=== PATIENT | female | born 1960 | race Two or more races ===

== ENCOUNTER 2017-02-09 16:28 | Emergency (ER) | payer OTHER ==
[2017-02-09 16:45] VITALS: BP 152/74
--- NOTE | 2017-02-09 20:32 | ED ---
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 States a angelica solano caught her finger and she sustained a laceration. Denies any FB besides some dirt. Patient has bleeding under control. Not on anticoagulants. No medical problems. Denies numbness/tingling. States it is only painful when moving fingers. Denies any other injuries. PMHx significant for Hep C and high cholesterol. - History of Current Complaint Chief Complaint: laceration Stated Complaint: HAND LAC Hx Obtained From: Patient Hx Last Menstrual Period: 3 yrs ago Mechanism of Injury: Sharp/Blunt Trauma - stick/thorns Onset/Duration: Sudden Onset Aggravating: Movement Alleviating: Compression Timing: Constant Onset Severity: Moderate Current Severity: Moderate Pain Intensity: 8 Pain Scale Used: 0-10 Numeric Associated Signs & Symptoms: Negative Related Hx: Dominant Hand (Right) - Allergy/Home Medications Allergies/Adverse Reactions: Allergies Allergy/AdvReac Type Severity Reaction Status Date / Time Morphine and Related Allergy Rash Verified 08/02/13 14:18 PMH/Surg Hx/FS Hx/Imm Hx Endocrine/Hematology History: Denies: Hx Anticoagulant Therapy, Hx Diabetes, Hx Thyroid Disease Cardiovascular History: Reports: Hx Hypercholesterolemia, Hx Hypertension Denies: Hx Pacemaker/ICD, Hx Peripheral Vascular Disease Musculoskeletal History: Denies: Hx Arthritis, Hx Osteoporosis Sensory History: Denies: Hx Cataracts, Hx Contacts or Glasses, Hx Glaucoma, Hx Hearing Aid Opthamlomology History: Denies: Hx Cataracts, Hx Contacts or Glasses, Hx Glaucoma Neurological History: Reports: Hx Headaches Denies: Hx Seizures, Hx Transient Ischemic Attacks (TIA) Psychiatric History: Denies: Hx Anxiety, Hx Depression, Hx Panic Disorder - Surgical History Surgery Procedure, Year, and Place: CSP- FUSION-2010; APPENDECTOMY; CYST-BREAST (Lt); TUBAL LIGATION - Immunization History Date of Tetanus Vaccine: 2015 Immunizations Up to Date: Yes Infectious Disease History: No Infectious Disease History: Reports: Hx Hepatitis - 12 yrs ago Denies: Traveled Outside the [place] in Last 30 Days - Family History Known Family History: Positive: Hypertension - Social History Alcohol Use: Daily Substance Use Type: Reports: Marijuana Substance Use Comment - Amount & Last Used: OCCASIONALLY Smoking Status (MU): Heavy Every Day Tobacco Smoker Type: Cigarettes Review of Systems Constitutional: Negative Cardiovascular: Negative Respiratory: Negative Positive: Other - laceration Neurological: Negative All Other Systems Reviewed And Are Negative: Yes Physical Exam Triage Information Reviewed: Yes Vital Signs On Initial Exam: Initial Vitals Temp Pulse Resp BP Pulse Ox 98.2 F 66 15 152/74 98 02/09/17 16:40 02/09/17 16:40 02/09/17 16:40 02/09/17 16:40 02/09/17 16:40 Vital Signs Reviewed: Yes Appearance: Positive: Well-Appearing, No Pain Distress, Well-Nourished Skin: Positive: Warm, Skin Color Reflects Adequate Perfusion, Dry, Other - 2.5cm laceration noted in between PIP of left 4/5th digits, linear, no active bleeding, ~.5cm width no tendon or neurovascular involvement. uncomplicated no FB. Negative: Cold, Numb, Cyanosis @, Pale Head/Face: Positive: Normal Head/Face Inspection Eyes: Positive: Conjunctiva Clear ENT: Positive: Hearing grossly normal Neck: Positive: Supple, Nontender Respiratory/Lung Sounds: Positive: Clear to Auscultation, Breath Sounds Present. Negative: Rales, Rhonchi, Wheezes Cardiovascular: Positive: Normal, RRR, Pulses are Symmetrical in both Upper and Lower Extremities - 2+ radial b/l. Negative: Murmur, Rub Bowel Sounds: Positive: Present Musculoskeletal: Positive: Normal, Strength/ROM Intact, Pain @ - at laceration left 4/5th digit, Other - no crepitus, step off or obvious deformity other than laceration. Negative: Limited @, Interruption @ Neurological: Positive: Normal, Sensory/Motor Intact - sensation intact, Alert, Oriented to Person Place, Time, CN Intact II-III, NV Bundle Intact Distally, Normal Gait Psychiatric: Positive: Affect/Mood Appropriate Procedures - Laceration/Wound Repair 1 Location: Other - left hand in between 4/5th digit Description: Linear Anesthesia: Local, 1.0%, Lido Length, Depth and Shape: 2.5cm length, .5cm width, superficial epidermal Betadine Prep?: Yes Irrigated w/ Saline (ccs): 200 Laceration/Wound Explored: clean, no foreign body removed Closure: Single Layer Suture Type: Prolene - 4-0 Number of Sutures: 3 Sterile Dressing Applied?: Yes Diagnostics - Vital Signs Vital Signs Temp Pulse Resp BP Pulse Ox 02/09/17 18:52 97.1 F 66 18 152/74 97 02/09/17 16:40 98.2 F 66 15 152/74 98 - Laboratory Lab Statement: Any lab studies that have been ordered have been reviewed, and results considered in the medical decision making process. Laceration Repair Course/Dx - Course Course Of Treatment: due to mechanism of injury no need for x-ray at this time. laceration was sutured without complication. patient tolerated procedure well. well approximated and closed nicely. no tendon or neurovacular involvement. tetanus is already up to date. keep clean and dry. watch for signs of infection. aware of worsening signs and symptoms. follow up pcp. - Differential Dx Differental Diagnoses: Abrasion, Avulsion, Laceration - Clinical Impression Provider Diagnoses: Laceration of left hand Discharge - Discharge Plan Condition: Stable Disposition: HOME Patient Education Materials: Care For Your Stitches (ED), Laceration (ED) Referrals: Vu Butts MD [Primary Care Provider] - Additional Instructions: Keep dressing applied for 48 hours. Do not get wet. You may remove dressing after 48 hours if desired. Ibuprofen for pain and inflammation. Apply triple antibiotic and gently clean, do not scrub laceration. Have sutures removed in 7-10 days. Follow up with PCP. If you develop worsening signs or symptoms of infection please seek medical attention.
== END 2017-02-09 20:25 | disposition home or self-care (01) ==
LOC: ED 16:28
DX: S61.412A Laceration without foreign body of left hand, initial encounter (principal); W26.9XXA Contact with unspecified sharp object(s), initial encounter; Y93.89 Activity, other specified; Y92.9 Unspecified place or not applicable; F17.210 Nicotine dependence, cigarettes, uncomplicated
CPT/HCPCS: 12002; 99281

== ENCOUNTER 2017-12-01 09:40 | Emergency (ER) | payer OTHER ==
[2017-12-01 09:56] VITALS: BP 130/114
--- NOTE | 2017-12-01 11:02 | UC ---
Knee Pain HPI - HPI Summary HPI Summary: 57 yo WF c/o right knee joint/peripatellar complaint x 1.5 weeks. Has had left knee pain in 2013 and has had Doxycycline PO in November and December on the right knee of 2013 as a result of dx of lyme disease at that time. Now c/o similar pain on right knee, works at the [employer] - History of Current Complaint Chief Complaint: UCGeneralIllness Stated Complaint: KNEE PAIN Time Seen by Provider: 12/01/17 09:55 Hx Obtained From: Patient Hx Last Menstrual Period: 3 yrs ago Onset/Duration: Sudden Onset Severity Currently: Moderate Pain Intensity: 6 Character: Dull, Aching Aggravating Factor(s): Movement Alleviating Factor(s): Rest Associated Signs And Symptoms: Positive: Negative Able to Bear Weight: Yes - Allergies/Home Medications Allergies/Adverse Reactions: Allergies Allergy/AdvReac Type Severity Reaction Status Date / Time morphine Allergy Intermediate Rash Verified 12/01/17 09:43 Home Medications: Home Medications Sertraline* [Zoloft*] 1 tab PO DAILY 12/01/17 [History Confirmed 12/01/17] PMH/Surg Hx/FS Hx/Imm Hx Previously Healthy: Yes Other History Of: Negative For: Anticoagulant Therapy - Surgical History Surgical History: Yes Surgery Procedure, Year, and Place: CSP- FUSION-2010; APPENDECTOMY; CYST-BREAST (Lt); TUBAL LIGATION - Family History Known Family History: Positive: Hypertension - Social History Alcohol Use: Weekly Alcohol Amount: 2x/week Substance Use Type: Marijuana Substance Use Comment - Amount & Last Used: OCCASIONALLY Smoking Status (MU): Heavy Every Day Tobacco Smoker Type: Cigarettes Household Exposure Type: Cigarettes - Immunization History Most Recent Tetanus Shot: UTD Review of Systems Constitutional: Negative Skin: Negative Eyes: Negative ENT: Negative Respiratory: Negative Cardiovascular: Negative Gastrointestinal: Negative Genitourinary: Negative Motor: Negative Neurovascular: Negative Musculoskeletal: Other: - right knee pain Neurological: Negative Psychological: Negative All Other Systems Reviewed And Are Negative: Yes Physical Exam Triage Information Reviewed: Yes Appearance: Well-Appearing Vital Signs: Initial Vital Signs Temp 37.1 C 12/01/17 09:48 Pulse 65 12/01/17 09:48 Resp 18 12/01/17 09:48 BP 130/114 12/01/17 09:48 Pulse Ox 97 12/01/17 09:48 Vital Signs Reviewed: Yes Eye Exam: Normal ENT Exam: Normal Dental Exam: Normal Neck exam: Normal Neck: Positive: 1 Respiratory Exam: Normal Cardiovascular Exam: Normal Abdominal Exam: Normal Musculoskeletal: Positive: Other: - right peripatellar tenderness, neg joint line tenderness, NVI no weakness Neurological Exam: Normal Psychological Exam: Normal Skin Exam: Normal Knee Pain Course/Dx - Course Course Of Treatment: XR of right knee- effusion , OA. lyme titer, KRISH wrap, work note - Differential Dx/Diagnosis Differential Diagnosis/HQI/PQRI: Internal Derangement Of Knee, Sprain, Strain, Tendonitis Provider Diagnoses: right knee pain Discharge - Sign-Out/Discharge Documenting (check all that apply): Discharge/Admit/Transfer - Discharge Plan Condition: Stable Disposition: HOME Patient Education Materials: Knee Pain (ED) Forms: *Work Release Referrals: Vu Butts MD [Primary Care Provider] - - Billing Disposition and Condition Condition: STABLE Disposition: HOME
--- NOTE | 2017-12-01 11:19 | RAD ---
HISTORY: Right knee pain COMPARISONS: None VIEWS: 4, Frontal, lateral, axial, and oblique views of the right knee FINDINGS: BONE DENSITY: Normal. BONES: There is no displaced fracture. JOINTS: There is mild medial compartment and patellofemoral osteoarthritis. There is a large suprapatellar joint effusion. There is no lipohemarthrosis. ALIGNMENT: There is no dislocation. SOFT TISSUES: Unremarkable. OTHER FINDINGS: None. IMPRESSION: 1. JOINT EFFUSION. 2. MILD OSTEOARTHRITIS. 3. NO ACUTE OSSEOUS INJURY. IF SYMPTOMS PERSIST, RECOMMEND REPEAT IMAGING.
--- NOTE | 2017-12-03 07:32 | UC ---
- Progress Note Progress Note: please notify pt of results I suspect this is due to her prior history of Lyme Disease and not an acute infection I suggest she see INFECTIOUS DISEASE SPECIALIST Please give her Dr. Kitchen contact info Discharge - Sign-Out/Discharge Documenting (check all that apply): Discharge/Admit/Transfer, Post-Discharge Follow Up - Discharge Plan Condition: Stable Disposition: HOME Prescriptions: Naproxen [Naproxen 500 mg tab] 500 mg PO BID 10 Days #20 tablet Patient Education Materials: Knee Pain (ED) Forms: *Work Release Referrals: Vu Butts MD [Primary Care Provider] - - Billing Disposition and Condition Condition: STABLE Disposition: HOME
== END 2017-12-01 11:36 | disposition home or self-care (01) ==
LOC: UCEAST 09:40
DX: M25.561 Pain in right knee (principal); F17.210 Nicotine dependence, cigarettes, uncomplicated; Z88.5 Allergy status to narcotic agent
CPT/HCPCS: 86617; 87476; 87798; 99212; G0463

== ENCOUNTER 2018-03-23 09:00 | Inpatient (IN) | payer OTHER ==
--- NOTE | 2018-03-19 12:48 | HP ---
HISTORY AND PHYSICAL: DATE OF ADMISSION/SURGERY: 03/23/18 DATE OF OFFICE VISIT: 03/17/18 SURGEON: Joslyn Burnett MD * (DICTATED BY TU MENON) PROCEDURE: Right total knee arthroplasty. CHIEF COMPLAINT: Right knee pain. HISTORY OF PRESENT ILLNESS: Ms. Astudillo is a 57-year-old female with end-stage osteoarthritis of the right knee. She has failed conservative treatment and elected to proceed with a right total knee arthroplasty. PAST MEDICAL HISTORY: Hepatitis C, high cholesterol. PAST SURGICAL HISTORY: Appendectomy, septoplasty, cyst excision from the left breast, tubal ligation, and anterior cervical discectomy. CURRENT MEDICATIONS: 1. Sertraline 50 mg daily. 2. Simvastatin 40 mg q.h.s. ALLERGIES: MORPHINE causing a rash. FAMILY HISTORY: Heart disease, diabetes, and breast cancer. SOCIAL HISTORY: She is a 57-year-old female. She lives alone. She smokes approximately 15 to 18 cigarettes a day as well as occasional marijuana and uses occasional alcohol. REVIEW OF SYSTEMS: A complete 14-point review of systems was reviewed with the patient. It was positive for hepatitis C this past year and a history of a DVT while she was . She denies a history of PE, HIV, or anesthesia problems. PHYSICAL EXAMINATION GENERAL: She is well developed, well nourished, in no acute distress. VITAL SIGNS: She stands 66 inches tall, weighs 163 pounds. Her blood pressure 126/76 and a heart rate 72. HEENT: Normocephalic, atraumatic. NECK: Supple. No palpable lymph nodes. PULMONARY: The lungs are clear to auscultation bilaterally. CARDIO: Regular rate and rhythm. Strong S1, S2. ABDOMEN: Soft, nontender, nondistended. MUSCULOSKELETAL: Right lower extremity: The skin is intact. There are no open wounds or abrasions. She has a moderate joint effusion. Her range of motion is 15 to 120 degrees of flexion with patellofemoral crepitus and there is a 14-degree valgus deformity. She has a 2+ dorsalis pedis pulse, intact sensation. Her lower extremity muscle group strengths are intact at 5/5. NEUROLOGICAL: She is alert and oriented x3. ASSESSMENT AND PLAN: Ms. Astudillo is a 57-year-old female with end-stage osteoarthritis of the right knee. She has failed conservative treatment and elected to proceed with a right total knee arthroplasty, which is scheduled for 03/23/[address] Burnett discussed the risks and benefits of the surgery at today's visit and all of her questions were answered. She will follow up with Dr. Burnett 2 weeks after the surgery. TU MENON [id number]/[facility] #: [id number] [facility]PITALVeronica
[~2018-03-23 09:00] MED LIST: Acetaminophen TAB* 325 MG PO ONE; Buffered Lidocaine 0.9% SYRIN* 5 ML/SYR SYRINGE INTRADERM ONE; Famotidine IV* 10 MG/ML 2 ML (20 mg) IV ONE; Gabapentin CAP(*) 300 MG PO ONE; Tranexamic Acid 1,000 MG in NS 0.9% 50 ML* (outpatient use) IV SCH; celeCOXIB CAP* 200 MG PO ONE
--- OUTSIDE RECORDS SUMMARY | 2018-03-23 11:32 | XMS REPORT ---
:1960 External Reference #:[id number] Author Organization [employer] Address [address] [place] [address] [place] [address] Phone [phone] Care Team Providers Name Role Phone Vu Butts M.D. Primary Care Physician Unavailable Payers Type Date Identification Numbers Payment Provider Subscriber Commercial Effective: Policy Number: [id number] [place] Beth Astudillo 2008 Medicaid PayID: [id number] [place] [id number] Problems Date Description Provider Status Onset: 02/06/2018 Sprain of shoulder and upper arm Joslyn Burnett M.D. Active Onset: 02/06/2018 Acquired genu valgum Joslyn Burnett M.D. Active Onset: 02/06/2018 Localized, primary osteoarthritis Joslyn Burnett M.D. Active Onset: 02/06/2018 Calcific tendinitis of shoulder Joslyn Burnett M.D. Active Family History Date Family Member(s) Problem(s) Comments General Cancer General Diabetes General Heart Disease General Stroke General Rheumatoid Arthritis Social History Type Date Description Comments Lives With Alone Occupation Home [facility] Smokeless Tobacco Never Used Smokeless Tobacco ETOH Use Occasionally consumes alcohol Smoking Heavy tobacco smoker (more than 10 cigarettes/day) Exercise Type/Frequency Exercises regularly Allergies, Adverse Reactions, Alerts Date Description Reaction Status Severity Comments 11/28/2013 Morphine active Medications Medication Date Status Form Strength Qnty SIG Indications Ordering Provider Sertraline HCL 00/ Active Tablets 50mg 90tabs 1 by mouth Unknown 0000 every day Simvastatin 0000/ Active Tablets 40mg 90tabs 1 by mouth Unknown 0000 every night at bedtime Doxycycline 12/16/ Hx Capsules 100mg 60caps 1 by mouth Z86.19 Terry D. Monohydrate 2018 - twice a day [place], 02/01/ with food M.D. 2017 Doxycycline 12/15/ Hx Capsules 100mg 60caps 1 cap by Z86.19 Terry Mendez Hyclate 2017 - mouth twice [place], 12/16/ a day with M.DCindy 2018 food Naproxen 12/12/ Hx Tablets 500mg 40tabs 1 tablet Joslyn 2013 - with food Lex, 12/14/ by mouth M.DCindy 2017 twice a day Augmentin 09/06/ Hx Tablets 875-125mg 8tabs 1 po bid Dirk 2011 - Thu, 11/27/ M.DCindy 2013 Neurontin 09/08/ Hx Capsules 300mg 90caps 1 po tid Fam Moon 2010 - Fili, 11/27/ M.DCindy 2013 Oxycodone HCL 08/28/ Hx Tablets 5mg 90tabs 1-2 po q 4 Percy Saravia 2010 - hrs prn Erik, 11/27/ pain M.DCindy 2013 Neurontin 07/14/ Hx Capsules 100mg 90caps 1 po qhs to Fam Moon 2010 - start x 2 Fili, 09/08/ days then Redd 2010 up as tolerable slowly to 3 qhs then up as tolerable to 3 tid 2 days between each change Doxycycline / Hx Capsules 100mg 14caps twice a day Unknown Hyclate 0000 - by mouth 2017 Hydrocodone-Ac / Hx Tablets 5-325mg 40tabs 1 by mouth Unknown etaminophen 0000 - every 4-6 08/07/ hours prn. 2014 Medications Administered in Office Medication Date Status Form Strength Qnty SIG Indications Ordering Provider Depomedrol Administered Injection Joslyn 40MG 018 Redd Burnett Depomedrol Administered Injection Joslyn 80MG 014 Redd Burnett Depomedrol Administered Injection Joslyn 80MG 014 Redd Burnett Depomedrol Administered Injection Joslyn 80MG 014 Redd Burnett Vital Signs Date Vital Result Comment 03/17/2018 Height 66 inches 5'6" Weight 163.00 lb BP Systolic 126 mmHg BP Diastolic 76 mmHg Respiratory Rate 15 /min Pain Level 6 BMI (Body Mass Index) 26.3 kg/m2 02/06/2018 Height 66 inches 5'6" Weight 164.00 lb Heart Rate 84 /min BP Systolic 142 mmHg BP Diastolic 86 mmHg BMI (Body Mass Index) 26.5 kg/m2 02/02/2018 Height 66 inches 5'6" Weight 162.12 lb Heart Rate 72 /min BP Systolic Sitting 146 mmHg BP Diastolic Sitting 72 mmHg Respiratory Rate 14 /min Body Temperature 97.2 F BMI (Body Mass Index) 26.2 kg/m2 01/12/2018 Height 66 inches 5'6" Weight 163.00 lb Heart Rate 72 /min BP Systolic Sitting 146 mmHg BP Diastolic Sitting 62 mmHg Respiratory Rate 14 /min Body Temperature 98.8 F BMI (Body Mass Index) 26.3 kg/m2 12/15/2017 Height 66 inches 5'6" Weight 162.50 lb Heart Rate 72 /min BP Systolic Sitting 154 mmHg BP Diastolic Sitting 90 mmHg Respiratory Rate 14 /min Body Temperature 99.0 F BMI (Body Mass Index) 26.2 kg/m2 02/15/2014 Height 66 inches 5'6" Heart Rate 69 /min BP Systolic 148 mmHg BP Diastolic 84 mmHg 12/12/2013 Height 66 inches 5'6" Heart Rate 74 /min BP Systolic 141 mmHg BP Diastolic 96 mmHg 11/28/2013 Height 66 inches 5'6" Weight 170.00 lb Heart Rate 66 /min BMI (Body Mass Index) 27.4 kg/m2 Results Test Date Test Result H/L Range Note Surgical Pathology 08/06/2010 Surgical Pathology 1 <SEE NOTE> CBC With Electronic 07/31/2010 White Blood Count 5.7 CUMM 4.8-10.8 2 Diff Red Cell Count 4.69 CUMM 4.2-5.4 2 Hemoglobin 15.7 g/dL 12.0-16.0 2 Hematocrit 45 % 35-47 2 Mean Corpuscular Volume 95 um3 79-97 2 Mean Corpuscular Hemoglob 33 pg High 27-31 2 Mean Corpuscular HGB Cone 35 g/dL 32-36 2 Redcell Distribution WDTH 13 % 10.5-15 2 Platelet Count 196 CUMM 150-450 2 Mean Platelet Volume 7.7 um3 7.4-10.4 2 Gran % 44.8 % 38-83 2 Lymph % 40.1 % 25-47 2 Mononuclear % 8.7 % 1-9 2 Eosinophil % 5.8 % 0-6 2 Basophil % 0.6 % 0-2 2 Abs Lymphs 2.3 1.0-4.8 2 Abs Mononuclear 0.5 0-0.8 2 Absolute Neutrophil Count 2.6 1.5-7.7 2 Abs Eosinophils 0.3 0-0.6 2 Abs Basophils 0 0-0.2 2 Basic Metabolic Panel 07/31/2010 Sodium 139 mmol/L 135-145 2 Potassium 4.1 mmol/L 3.5-5.0 2 Chloride 105 mmol/L 101-111 2 Co2 (Carbon Dioxide) 28.0 mmol/L 22-32 2 Anion Gap 6.0 mmol/L 2-11 2, 3 Glucose 98 mg/dL 70-100 2 BUN 16 mg/dL 6-24 2 Creatinine 0.80 mg/dL 0.50-1.40 2 One Over Creatinine 1.20 2 BUN/Creatinine Ratio 20.0 8-20 2 Calcium 9.4 mg/dL 8.1-9.9 2 eGFR Non- 80.4 > 60 2 eGFR 97.3 > 60 2, 4 Type And Screen (Pre-Adm) 07/31/2010 Patient Blood Type B POSITIVE 2 Antibody Screen NEGATIVE 2 Specimen Discard Date 08/14/10 2, 5 1 --- RUN DATE: 08/07/10 [facility] NMI LIVE PAGE 1 RUN TIME: 1442 Specimen Inquiry RUN USER: INTERFACE -- Name: BETH ASTUDILLO Status: DIS IN Re08/06/10 Age/Sex: 50/F Unit#: [id number] Location: [facility]. : 58 -- Specimen: [id number] SOUT Spec Date: 08/06/[address]: Fam mckeon MD Spec Type: SURGICAL P Received: 08/06/10-8347 Copies to: SPECIMEN C5, 6, 7 DISC MATERIAL HISTORY PRE-OP DIAGNOSIS: Spinal cord compression and stenosis C5-C6, C6-C7 GROSS DESCRIPTION The specimen is received in formalin labelled Beth AnaCindy Astudillo, C5, C6, C7 Disc Material, and consists of multiple fragments of pink fibrous tissue measuring in aggregate 2.5 x 2.5 x 1.5 cm. Smash Hand section, one cassette. DIAGNOSIS Disc, C5-7, discectomy: Fibrohyaline cartilage with marked regenerative changes. Signed Electronically by: MAYTE MAI 08/07/10 1442 -- -- DEPARTMENT OF PATHOLOGY, [address] [place] [address] [facility] Permit #[id number] Rolando Hernandez M.D. Director Mayte Mai M.D. Stereo Plotter Operator Dir meeta -- 2 AA 08/06/10 3 Anion gap measurement may be of limited value in the presence of any alkalosis, especially in a combined acid base disorder. . 4 Because ethnic data is not always readily available, this report includes an eGFR for both -Americans and non- Americans. The National Kidney Disease Education Program (NKDEP) does not endorse the use of the MDRD equation for patients that are not between the ages of 18 and 70, are , have extremes of body size, muscle mass, or nutritional status, or are non- or non-. According to the National Kidney Foundation, irrespective of diagnosis, the stage of the disease is based on the level of kidney function: Stage Description GFR(mL/min/1.73 m(2)) 1 Kidney damage with normal or decreased GFR 90 2 Kidney damage with mild decrease in GFR 60-89 3 Moderate decrease in GFR 30-59 4 Severe decrease in GFR 15-29 5 Kidney failure <15 (or dialysis) 5 PREADMISSION TESTING SAMPLES FOR BLOOD BANK WILL BE HELD FOR 14 DAYS FROM THE DATE OF COLLECTION *IF* THE FOLLOWING CRITERIA ARE MET: 1) THE PATIENT HAS *NOT* BEEN IN THE LAST 3 MONTHS. 2) THE PATIENT HAS *NOT* BEEN TRANSFUSED IN THE LAST 3 MONTHS. PREADMISSION TESTING SAMPLES WILL *NOT* BE HELD FOR 14 DAYS FROM PATIENTS WHO IN THE LAST 3 MONTHS: 1) HAVE BEEN 2) HAVE BEEN TRANSFUSED THESE PATIENTS *MUST* BE COLLECTED WITHIN 3 DAYS OF THE SURGERY DATE. Procedures Date CPT Code Description Status 02/06/2018 Inject/Drain Joint/Bursa Major W/O US Completed 03/23/2017 57600 Destruction Of Benign Lesions Any Method 1-14 lesions Completed 03/23/2017 10098 Removal Skin Tags Up To 15 Completed 02/15/2014 Inject/Drain Joint/Bursa Major W/O US Completed 12/12/2013 Inject/Drain Joint/Bursa Major W/O US Completed 11/28/2013 54843 Xray Knee 3 Views Completed 11/28/2013 96617 Xray Knee 3 Views Completed 11/28/2013 Inject/Drain Joint/Bursa Major W/O US Completed 09/06/2011 54266 Rad Exam; Fingers Completed 09/06/2011 84823 FX Distal Finger/Thumb Care Completed 08/06/2010 07311 Anterior Instrumentation 2-3 Vertebral Segments Completed 08/06/2010 03629 additional level cervical below C2 Completed 08/06/2010 22936 arthrodesis,anterior interbody incl disc space Completed prep,discectomy,de 08/06/201081768 Allograft For Spine Surgery,Structural ([facility]) Completed Encounters Type Date Location Provider CPT E/M Dx Office Visit 02/06/2018 [facility] Joslyn Burnett M.D. 61262 M25.512 8:45a Of [facility] M25.561 M25.461 M75.32 S46.012A M21.061 M17.11 M19.012 Office Visit 02/02/2018 2:40p Sandor Mendez 25605 S83.206D Infectious Kennedy Guadarrama M.D. M25.512 S83.281D Office Visit 01/12/2018 2:20p Sandor Mendez 14245 M25.561 Chelsea Guadarrama M.D. M25.461 Office Visit 12/15/2017 4:20p Sandor Guadarrama, 81266 Z86.19 Chelsea Benavides M.D. A69.23 M25.561 M25.461 R76.8 Office Visit 03/23/2017 2:10p [facility] [place] [address] L56.8 D22.71 L82.0 Z78.9 R23.8 L53.8 L29.8 R20.8 L91.8 Office Visit 11/28/2013 1:00p [facility] Joslyn Burnett M.D. 91659 715.96 [facility] 088.81 844.1 139.8 Office Visit 01/17/2013 2:00p [facility] 25848 721.1 Of Door Fitter M.DiCndy Office Visit 02/12/2011 10:00a [facility] 75309 721.1 Of Braulio M.Vanessa Office Visit 07/24/2010 1:40p [facility] 03256 723.4 Of Braulio M.Vanessa Office Visit 07/14/2010 11:00a [facility], 87876 723.1 Of Braulio M.Vanessa Plan of Care Future Appointment(s):04/07/2018 10:15 am - Joslyn Burnett M.[facility]. at [facility]03/23/2018 3:30 pm - Justino Menendez PA-C at [facility]03/23/2018 3:30 pm - TU Garcia at [facility]03/23/2018 3:30 pm - Joslyn Burnett M.D. at [facility]03/17/2018 - Joslyn Burnett M.D.M17.11 Unilateral primary osteoarthritis, right kneeFollow up:Follow up: 2 weeks after [id number] Valgus deformity, not elsewhere classified, right knee
--- OUTSIDE RECORDS SUMMARY | 2018-03-23 11:33 | XMS REPORT ---
:1960 External Reference #:[id number] Author Organization [facility] Address [address] [place] [address] Phone [phone] Care Team Providers Name Role Phone Vu Butts M.D. Primary Care Physician Unavailable Payers Type Date Identification Numbers Payment Provider Subscriber Commercial Effective: Policy Number: [id number] Gamaliel Astudillo 2008 [facility] PayID: [id number] [place] [address] Problems Date Description Provider Status Onset: 05/13/2015 Chronic hepatitis PADMAJA Sims Active Family History Date Family Member(s) Problem(s) Comments Onset: (age 65 Father Stroke Years) Father due to Unknown () - likely Causes SD Father Migraines Father CAD Father SD in his 60's Father Obesity Father Diabetes Mother Alcoholism Mother Cancer, Breast Children 2 First Son Non Contributory Siblings 1 First Sister Lupus Erythematosis (presumed) First Sister "Hypochondriac" Paternal Grandfather due to SD () - in his 80's : (age Paternal Grandmother due to Cerebral 85 Years) Aneurysm Maternal Grandfather due to Unknown () Causes Maternal Grandmother due to "Old Age" () - in her 80's Paternal Aunts Multiple Sclerosis Social History Type Date Description Comments Marital Status Single Lives With Alone has a neighbor that will help her after surgery Diet Healthy, Well Balanced Pets 1 dog Occupation works at [employer] Cigarette Use Current Cigarette Smoker 1 started smoking at 13 Pack Daily ETOH Use Occasionally consumes alcohol Smoking Patient is a current smoker, smokes every day Recreational Drug Use Regularly uses Marijuana Daily Caffeine Consumes on average 2 cups of coffee per day Enjoy Exercising Enjoys exercising Personal Habits Text Smokes marajuana occasionally. Formerly used IV drugs including cocaine, heroine, methamphetamines. None since 1989. Never in rehab. Allergies, Adverse Reactions, Alerts Date Description Reaction Status Severity Comments 11/29/2003 Morphine active rash Medications Medication Date Status Form Strength Qnty SIG Indications Ordering Provider Doxycycline 09/10 Active Tablets 100mg 42tab 1 by mouth S10.86xA Kate Monohydrate /2017 s twice a day P. x 3 weeks as Blegen, directed for M.D. lyme Sertraline HCL 03/07 Active Tablets 100mg 30tab 1 by mouth Kristy s every day PADMAJA Echeverria Simvastatin 01/06 Active Tablets 40mg 30tab take 1 Carlie s tablet at [facility], bedtime (on M.D., hold while R.D. on mavyret) Mavyret Active Tablets 100-40mg for hep c Harmeet, /0000 Steve Pozo MD Doxycycline 09/10 Hx Capsules 100mg 42cap 1 by mouth S10.86xA Kate Hyclate s twice a day P. - x 21 days Blegen, 09/10 for M.D. /2017 bronchitis Benzonatate 06/24 Hx Capsules 200mg 30cap 1 by mouth J06.9 Shawnti s three times R. Chan, - a day for LOG BUNCHER-C 09/10 cough Chantix 08/11 Hx Tablets 0.5mg 11tab take 1 Kristy s tablet by Mame, - mouth daily LOG BUNCHER-C 03/07 days 1-3, take 1 tablet by mouth twice a day days 4-7, then use maintenance pack Chantix 08/11 Hx Tablets 1mg 60tab take 1 Kristy s tablet by Mame, - mouth two LOG BUNCHER-C 03/07 times daily as directed for smoking cessation Prednisone 01/29 Hx Tablets 20mg 20tab take 3 tabs L23.7 Micah s by mouth x 3 [place]ks - days, then 2 MD 03/07 tabs by mouth x 3 days, then 1 tab by mouth x 3 days then 1/2 tab by mouth x 4 days Doxycycline 11/07 Hx Tablets 100mg 2tabs 2 tab by Kristy Hyclate /2015 mouth today Emilee Echeverria LOG BUNCHER-C 03/07 Chantix 05/31 Hx Tablets 0.5mg 11tab take 1 305.1 s tablet by Mame, - mouth daily LOG BUNCHER-C 05/02 days 1- take 1 tablet by mouth twice a day days 4-7, then use maintenance pack Chantix 05/31 Hx Tablets 1mg 60tab 1 by mouth 305.1 Kristy s twice a day Emilee Echeverria LOG BUNCHER-C 05/02 Doxycycline 01/02 Hx Tablets 100mg 56tab 1 po bid X Kristy Hyclate s 28 Emilee Echeverria LOG BUNCHER-C 05/31 Doxycycline 11/19 Hx Tablets 100mg 56tab 1 po bid X Kristy Hyclate s 28 days Emilee Echeverria LOG BUNCHER-C 12/24 Hydrocodone/Aceta 11/09 Hx Tablets 5-325mg 10ten 1 po q 6 hrs 719.46 Kristy teague prn severe Mame - pain LOG BUNCHER-C 05/02 Carpal Tunnel 10/18 Hx Misc 354.0 Beckie Stabilizefernando/Bhaskar/ - M.D. Medium 01/05 Sertraline HCL 06/30 Hx Tablets 50mg 30tab take 1 s tablet once Beckie, - daily M.D. 03/07 Zostavax 01/18 Hx Solution [id number]/ 1unit perishable Rec 0.65ML s vaccine. Beckie, - bring M.D. 08/16 to md office for administrati on. Chantix 01/27 Hx Tablets 1mg 60tab 1 po bid 305.1 s Emilee Butts M.D. 07/28 Chantix 01/27 Hx Tablets 0.5mg X 53tab as directed 305.1 11 & 1 mg s Beckie - X M.D. 07/13 Cyclobenzaprine 02/12 Hx Tablets 10mg 30tab 1/2 or 1 po 724.3 s tid for Beckie, - muscle M.D. 08/16 spasm, cause tiredness Naprosyn Ec 02/12 Hx Tablets 500mg 60tab 1 po bid 724.3 s with food FernandoCindy Chan, - for pain, LOG BUNCHER-C 07/28 stop taking if stomach pain develops Percocet 02/12 Hx Tablets 5-325mg 30thi 1 tabs po 724.3 rty q4-6hr prn Beckie - pain M.D. 02/26 Physical Therapy 02/12 Hx eval and 724.3 nt treat low R. Chan, - back pain LOG BUNCHER-C 07/28 and sciatic pain Chantix 12/30 Hx Tabs 0.5mg X 53tab use as 305.1 11 & 1 mg Emilee Alejandre M.DCindy 07/28 Meridia 08/28 Hx Capsules 10mg 30cap 1 po qd Emilee Gregorio.DCindy 08/28 Phentermine HCL 08/28 Hx Capsules 30mg 30cap 1 po qd Emilee Gregorio M.DCindy 12/30 Women's One Daily 01/08 Hx Tablets Beckie - M.D. 07/28 Calcium/Vitamin D 01/08 Hx Tablets 500/200 1 qd Beckie - M.D. 07/28 Fish Oil 01/08 Hx Capsules 500mg 1 qd Beckie - M.D. 07/28 Lac-Hydrin 10/18 Hx Cream 12% 140gm apply to dry skin on heel Beckie, - qd to bid M.D. 08/16 Cryotherapy 04/23 Hx risks and 702.19 Beverley Consent /2007 benefits of A. - treatment of Harsha, 01/08 seborrheic F.N.P.C. /2008 keratosis on the face discussed, infection, scarring.PT consent Ibuprofen 01/14 Hx Tablets 800mg 30tab One PO Every 726.19 Beverley /2008 s 8 Hours With A. - Food for 10 Harsha, 01/08 days F.N.P.C. /2008 Flexeril 07/07 Hx Tablets 10mg 20tab 1 PO tid prn 726.19 Beverley s Muscle Spasm A. - Harsha, 01/08 F.N.P.C. /2008 Physical Therapy 01/14 Hx Evaluate and 726.19 Beverley treat right A. - shoulder Harsha, 01/08 pain, carpal F.N.P.C. /2008 tunnel right wrist. Zoloft 07/26 Hx Tablets 50mg 30tab 1 qd s Emilee Butts M.D. 06/30 Chantix 07/26 Hx Misc Starter 1unit use as Pack s directed Emilee Butts M.D. 08/25 Chantix 07/26 Hx Tabs 1mg 60tab take 1 tab 2 Shawnti Continuing s times A day Wolf Gauthier 07/28 Amoxicillin 11/28 Hx Capsules 500mg 30cap 1 tid x 10 s days Emilee Butts M.D. 12/28 Albuterol Metered 11/28 Hx Inhaler 17gm 2-To-4 Vu Dose Inhaler /2003 Seperate Emilee Butts Puffs Every M.DCindy 04/12 4 Hours /2006 Immunizations CPT Code Status Date Vaccine Lot # [id number] Given 12/23/2017 Hepatitis A, Adult [id number] 23643 Given 06/24/2017 Hepatitis A, Adult [id number] 42789 Given 03/07/2017 Influenza Virus Vaccine, Quadrivalent, 3 Yr > [id number] Quad, Preserv Free 20772 Given 05/07/2016 Influenza Virus Vaccine, Quadrivalent, 3 Yr > Quad, Preserv Free 57259 Given 04/25/2015 Influenza Virus Vaccine, Quadrivalent, 3 Yr > Quad, Preserv Free 54869 Given 04/14/2014 Influenza Virus Vaccine, Quadrivalent, 3 Yr > Quad, Preserv Free 63125 Given 02/08/2014 Td Age 7 to adult (Tenivac, Decavac, Mass [id number] [employer]ologics) 96576 Given 04/26/2013 Influenza Vaccine-Preservative Free 3 Yrs And Above 50907 Given 07/18/2012 Influenza Vaccine-Preservative Free 3 Yrs And Above 26811 Given 02/15/2012 Zoster Vaccine [id number] 07813 Given 04/08/2008 Hep B Vaccine Adult, 3 Dose age >20 yrs [id number] 68286 Given 12/01/2007 Hep B Vaccine Adult, 3 Dose age >20 yrs [id number] 11049 Given 10/06/2007 Hep B Vaccine Adult, 3 Dose age >20 yrs [id number] 49670 Given 04/12/2007 Tdap (Adacel) [id number] Vital Signs Date Vital Result Comment 03/09/2018 Weight 162.00 lb Weight in kg's 73.483 BP Systolic 142 mmHg BP Diastolic 80 mmHg Heart Rate 64 /min Body Temperature 97.5 F Respiratory Rate 16 /min 09/10/2017 Weight 174.00 lb Weight in kg's 78.926 BP Systolic 144 mmHg BP Diastolic 72 mmHg Heart Rate 72 /min Body Temperature 97.3 F Respiratory Rate 18 /min 06/24/2017 Weight 172.00 lb Weight in kg's 78.019 BP Systolic 132 mmHg BP Diastolic 84 mmHg Heart Rate 61 /min Body Temperature 98.4 F Respiratory Rate 18 /min O2 % BldC Oximetry 98 % 03/07/2017 Weight 169.00 lb Weight in kg's 76.658 BP Systolic 140 mmHg BP Diastolic 88 mmHg Heart Rate 58 /min Body Temperature 97.5 F Respiratory Rate 14 /min Height 65.5 inches 5'5.50" BMI (Body Mass Index) 27.7 kg/m2 01/30/2016 Weight 168.00 lb Weight in kg's 76.205 BP Systolic 140 mmHg BP Diastolic 90 mmHg Heart Rate 62 /min Body Temperature 98.1 F Respiratory Rate 20 /min 05/13/2015 Weight 173.00 lb Weight in kg's 78.473 BP Systolic 140 mmHg BP Diastolic 82 mmHg Heart Rate 66 /min Body Temperature 98.6 F Height 66 inches 5'6" BMI (Body Mass Index) 27.9 kg/m2 05/02/2015 Weight 173.00 lb Weight in kg's 78.473 BP Systolic 154 mmHg 160/90 repeat BP Diastolic 70 mmHg 160/90 repeat Heart Rate 80 /min 05/31/2014 Weight 182.00 lb Weight in kg's 82.555 BP Systolic 152 mmHg BP Diastolic 78 mmHg Heart Rate 72 /min 03/01/2014 Weight 170.00 lb Weight in kg's 77.112 BP Systolic 112 mmHg BP Diastolic 68 mmHg Heart Rate 68 /min 02/08/2014 Weight 171.00 lb Weight in kg's 77.566 BP Systolic 120 mmHg BP Diastolic 65 mmHg Heart Rate 64 /min 12/24/2013 Weight 168.00 lb Weight in kg's 76.205 BP Systolic 120 mmHg BP Diastolic 72 mmHg Heart Rate 68 /min 11/09/2013 Weight 176.00 lb Weight in kg's 79.834 BP Systolic 144 mmHg BP Diastolic 50 mmHg Heart Rate 60 /min 07/17/2013 Weight 166.00 lb Weight in kg's 75.298 BP Systolic 114 mmHg BP Diastolic 74 mmHg Heart Rate 76 /min Body Temperature 98.0 F 02/14/2013 Weight 177.00 lb Weight in kg's 80.287 BP Systolic 130 mmHg BP Diastolic 66 mmHg Heart Rate 68 /min 10/18/2012 Weight 186.00 lb Weight in kg's 84.370 BP Systolic 144 mmHg BP Diastolic 80 mmHg Heart Rate 72 /min Body Temperature 98.4 F 09/21/2012 Weight 185.00 lb Weight in kg's 83.916 BP Systolic 120 mmHg BP Diastolic 70 mmHg Heart Rate 70 /min 08/17/2012 Weight 184.00 lb Weight in kg's 83.462 BP Systolic 130 mmHg BP Diastolic 64 mmHg Heart Rate 72 /min Height 66.5 inches 5'6.50" BMI (Body Mass Index) 29.3 kg/m2 02/15/2012 Weight 192.00 lb Weight in kg's 87.091 BP Systolic 140 mmHg BP Diastolic 92 mmHg Heart Rate 80 /min 08/03/2011 Weight 203.00 lb Weight in kg's 92.081 BP Systolic 128 mmHg BP Diastolic 74 mmHg Heart Rate 80 /min 01/27/2011 Weight 200.00 lb Weight in kg's 90.720 BP Systolic 140 mmHg BP Diastolic 88 mmHg Heart Rate 76 /min Body Temperature 98.1 F 07/28/2010 Weight 205.00 lb Weight in kg's 92.988 BP Systolic 140 mmHg BP Diastolic 76 mmHg Heart Rate 76 /min Body Temperature 97.6 F Height 66.75 inches 5'6.75" BMI (Body Mass Index) 32.3 kg/m2 07/01/2010 Weight 207.00 lb Weight in kg's 93.895 BP Systolic 120 mmHg BP Diastolic 70 mmHg Heart Rate 80 /min 04/16/2010 Weight 203.00 lb Weight in kg's 92.081 BP Systolic 160 mmHg BP Diastolic 88 mmHg Heart Rate 88 /min Body Temperature 98.9 F 03/10/2010 Weight 200.00 lb Weight in kg's 90.720 BP Systolic 138 mmHg BP Diastolic 80 mmHg Heart Rate 76 /min Body Temperature 98.4 F 02/12/2010 Weight 197.00 lb Weight in kg's 89.359 BP Systolic 130 mmHg BP Diastolic 80 mmHg Heart Rate 80 /min Body Temperature 98.5 F 12/30/2009 Weight 200.00 lb Weight in kg's 90.720 BP Systolic 130 mmHg BP Diastolic 76 mmHg Heart Rate 80 /min 09/26/2009 Weight 201.00 lb Weight in kg's 91.174 BP Systolic 160 mmHg my repeat 150/80 BP Diastolic 85 mmHg my repeat 150/80 Heart Rate 68 /min 08/28/2009 Weight 202.00 lb Weight in kg's 91.627 BP Systolic 134 mmHg BP Diastolic 90 mmHg Heart Rate 72 /min 07/16/2009 Weight 199.00 lb Weight in kg's 90.266 BP Systolic 116 mmHg BP Diastolic 74 mmHg Heart Rate 76 /min 01/08/2009 Weight 191.00 lb Weight in kg's 86.638 BP Systolic 140 mmHg BP Diastolic 74 mmHg Heart Rate 72 /min Height 67 inches 5'7" BMI (Body Mass Index) 29.9 kg/m2 10/18/2008 Weight 198.00 lb Weight in kg's 89.813 BP Systolic 142 mmHg BP Diastolic 80 mmHg Heart Rate 72 /min 04/23/2008 Weight 191.00 lb Weight in kg's 86.638 BP Systolic 126 mmHg BP Diastolic 80 mmHg Heart Rate 68 /min Height 67 inches 5'7" BMI (Body Mass Index) 29.9 kg/m2 04/09/2008 Weight 190.00 lb Weight in kg's 86.184 BP Systolic 140 mmHg BP Diastolic 70 mmHg Heart Rate 68 /min Height 67 inches 5'7" BMI (Body Mass Index) 29.8 kg/m2 01/15/2008 Weight 186.00 lb Weight in kg's 84.370 BP Systolic 130 mmHg BP Diastolic 92 mmHg Body Temperature 98.2 F Height 67 inches 5'7" BMI (Body Mass Index) 29.1 kg/m2 07/26/2007 Weight 186.00 lb Weight in kg's 84.370 BP Systolic 120 mmHg BP Diastolic 66 mmHg Heart Rate 84 /min Body Temperature 97.8 F Height 67 inches 5'7" BMI (Body Mass Index) 29.1 kg/m2 O2 % BldC Oximetry 98 % 05/02/2007 Weight 186.00 lb Weight in kg's 84.370 BP Systolic 112 mmHg BP Diastolic 66 mmHg Heart Rate 76 /min Height 67 inches 5'7" BMI (Body Mass Index) 29.1 kg/m2 04/12/2007 Weight 179.00 lb Weight in kg's 81.194 BP Systolic 134 mmHg BP Diastolic 80 mmHg Heart Rate 80 /min Height 67 inches 5'7" BMI (Body Mass Index) 28.0 kg/m2 12/05/2003 Weight 145.00 lb Weight in kg's 65.772 BP Systolic 145 mmHg BP Diastolic 79 mmHg Heart Rate 86 /min Results Test Date Test Result H/L Range Note Order 03/09/2018 EKG <pending> Laboratory test finding 03/09/2018 TSH (Thyroid Stim 1.10 mcIU/mL 0.34- 5.60 1 Horm) CBC Auto Diff 03/09/2018 White Blood Count 4.6 10^3/uL 3.5-10.8 Red Blood Count 4.87 10^6/uL 4.00-5.40 Hemoglobin 15.5 g/dL 12.0-16.0 Hematocrit 46 % 35-47 Mean Corpuscular Volume 94 fL 80-97 Mean Corpuscular Hemoglobin 32 pg High 27-31 Mean Corpuscular HGB Conc 34 g/dL 31-36 Red Cell Distribution Width 14 % 10.5-15 Platelet Count 185 10^3/uL 150-450 Mean Platelet Volume 8.8 um3 7.4-10.4 Abs Neutrophils 2.2 10^3/uL 1.5-7.7 Abs Lymphocytes 1.7 10^3/uL 1.0-4.8 Abs Monocytes 0.4 10^3/uL 0-0.8 Abs Eosinophils 0.3 10^3/uL 0-0.6 Abs Basophils 0 10^3/uL 0-0.2 Abs Nucleated RBC 0 10^3/uL Granulocyte % 47.5 % 38-83 Lymphocyte % 36.0 % 25-47 Monocyte % 9.4 % High 0-7 Eosinophil % 6.3 % High 0-6 Basophil % 0.8 % 0-2 Nucleated Red Blood Cells % 0.2 Comp Metabolic Panel 03/09/2018 Sodium 140 mmol/L 135-145 Potassium 4.4 mmol/L 3.5-5.0 Chloride 106 mmol/L 101-111 Co2 Carbon Dioxide 30 mmol/L 22-32 Anion Gap 4 mmol/L 2-11 Glucose 83 mg/dL 70-100 Blood Urea Nitrogen 17 mg/dL 6-24 Creatinine 0.77 mg/dL 0.51-0.95 BUN/Creatinine Ratio 22.1 High 8-20 Calcium 9.2 mg/dL 8.6-10.3 Total Protein 6.7 g/dL 6.4-8.9 Albumin 4.2 g/dL 3.2-5.2 Globulin 2.5 g/dL 2-4 Albumin/Globulin Ratio 1.7 1-3 Total Bilirubin 0.60 mg/dL 0.2-1.0 Alkaline Phosphatase 60 U/L 34-104 Alt 13 U/L 7-52 Ast 18 U/L 13-39 Egfr Non- 77.0 >60 Egfr 93.2 >60 2 Lipid Profile (Trig/Chol/HDL) 03/09/2018 Triglycerides 90 mg/dL 3 Cholesterol 232 mg/dL 4 HDL Cholesterol 72.3 mg/dL 5 LDL Cholesterol 142 mg/dL 6 Lyme Disease PCR 12/01/2017 B burgdorferi PCR, Blood Negative Negative B mayonii PCR Negative Negative B garinii/B afzelii PCR Negative Negative Lyme Disease PCR Comment See Comment 7 Lyme Western Blot 12/01/2017 Lyme Disease IgG Ab WB Positive Negative Lyme Disease IgG Bands Present See Comment kDa 8 Lyme Disease IgM Ab WB Negative Negative Lyme Disease IgM Bands Present p41 kDa Lyme Disease Interpretation See Comment 9 Laboratory test finding 06/24/2017 Strep Screen neg Neg Laboratory test finding 03/10/2017 Hepatitis C Rna Quant [id number] IU/mL Undetected 10 CBC Auto Diff 03/07/2017 White Blood Count 5.8 10^3/uL 3.5-10.8 Red Blood Count 4.78 10^6/uL 4.0-5.4 Hemoglobin 15.1 g/dL 12.0-16.0 Hematocrit 45 % 35-47 Mean Corpuscular Volume 93 fL 80-97 Mean Corpuscular Hemoglobin 32 pg High 27-31 Mean Corpuscular HGB Conc 34 g/dL 31-36 Red Cell Distribution Width 14 % 10.5-15 Platelet Count 218 10^3/uL 150-450 Mean Platelet Volume 8 um3 7.4-10.4 Abs Neutrophils 2.7 10^3/uL 1.5-7.7 Abs Lymphocytes 2.2 10^3/uL 1.0-4.8 Abs Monocytes 0.6 10^3/uL 0-0.8 Abs Eosinophils 0.2 10^3/uL 0-0.6 Abs Basophils 0 10^3/uL 0-0.2 Abs Nucleated RBC 0 10^3/uL Granulocyte % 47.4 % 38-83 Lymphocyte % 38.5 % 25-47 Monocyte % 9.8 % High 1-9 Eosinophil % 3.8 % 0-6 Basophil % 0.5 % 0-2 Nucleated Red Blood Cells % 0 Comp Metabolic Panel 03/07/2017 Sodium 140 mmol/L 133-145 Potassium 3.7 mmol/L 3.5-5.0 Chloride 106 mmol/L 101-111 Co2 Carbon Dioxide 28 mmol/L 22-32 Anion Gap 6 mmol/L 2-11 Glucose 74 mg/dL 70-100 Blood Urea Nitrogen 15 mg/dL 6-24 Creatinine 0.68 mg/dL 0.51-0.95 BUN/Creatinine Ratio 22.1 High 8-20 Calcium 9.3 mg/dL 8.6-10.3 Total Protein 7.1 g/dL 6.4-8.9 Albumin 4.4 g/dL 3.2-5.2 Globulin 2.7 g/dL 2-4 Albumin/Globulin Ratio 1.6 1-3 Total Bilirubin 0.40 mg/dL 0.2-1.0 Alkaline Phosphatase 64 U/L 34-104 Alt 30 U/L 7-52 Ast 30 U/L 13-39 Egfr Non- 89.2 >60 Egfr 114.7 >60 11 Lipid Profile (Trig/Chol/HDL) 03/07/2017 Triglycerides 65 mg/dL 12 Cholesterol 177 mg/dL 13 HDL Cholesterol 75.0 mg/dL 14 LDL Cholesterol 89 mg/dL 15 Laboratory test finding 03/07/2017 Vitamin B12 257 pg/mL 180-914 16 Vitamin D Total 25(Oh) 47.3 ng/mL 30-50 17 Laboratory test finding 06/02/2015 Hepatitis C Genotype 1b Undetected 18 Hepatitis C Rna Quant [id number] IU/mL Undetected 19 Liver Function Panel 06/02/2015 Total Protein 7.6 g/dL 6.4-8.9 Albumin 4.6 g/dL 3.2-5.2 Globulin 3.0 g/dL 2-4 Albumin/Globulin Ratio 1.5 1-3 Total Bilirubin 0.50 mg/dL 0.2-1.0 Direct Bilirubin 0.10 mg/dL 0.03-0.18 Indirect Bilirubin 0.4 mg/dL 0.3-1.0 Alkaline Phosphatase 66 U/L 34-104 Alt 25 U/L 7-52 Ast 28 U/L 13-39 Laboratory test finding 05/13/2015 Cytology SEE RESULT BELOW 20 HPV Rna Ww/Reflex Genotype Negative Negative 21 CBC Auto Diff 05/13/2015 White Blood Count 7.1 10^3/uL 4.8-10.8 Red Blood Count 5.10 10^6/uL 4.0-5.4 Hemoglobin 16.3 g/dL High 12.0-16.0 Hematocrit 49 % High 35-47 Mean Corpuscular Volume 96 fL 80-97 Mean Corpuscular Hemoglobin 32 pg High 27-31 Mean Corpuscular HGB Conc 33 g/dL 31-36 Red Cell Distribution Width 13 % 10.5-15 Platelet Count 206 10^3/uL 150-450 Mean Platelet Volume 9 um3 7.4-10.4 Abs Neutrophils 4.5 10^3/uL 1.5-7.7 Abs Lymphocytes 1.8 10^3/uL 1.0-4.8 Abs Monocytes 0.5 10^3/uL 0-0.8 Abs Eosinophils 0.3 10^3/uL 0-0.6 Abs Basophils 0.1 10^3/uL 0-0.2 Abs Nucleated RBC 0.04 10^3/uL Granulocyte % 63.1 % 38-83 Lymphocyte % 25.5 % 25-47 Monocyte % 7.0 % 1-9 Eosinophil % 3.6 % 0-6 Basophil % 0.8 % 0-2 Nucleated Red Blood Cells % 0.5 Comp Metabolic Panel 05/13/2015 Sodium 141 mmol/L 133-145 Potassium 4.3 mmol/L 3.5-5.0 Chloride 106 mmol/L 101-111 Co2 Carbon Dioxide 32 mmol/L 22-32 Anion Gap 3 mmol/L 2-11 Glucose 84 mg/dL 70-100 Blood Urea Nitrogen 9 mg/dL 6-24 Creatinine 0.77 mg/dL 0.51-0.95 BUN/Creatinine Ratio 11.7 8-20 Calcium 9.4 mg/dL 8.6-10.3 Total Protein 7.3 g/dL 6.4-8.9 Albumin 4.5 g/dL 3.2-5.2 Globulin 2.8 g/dL 2-4 Albumin/Globulin Ratio 1.6 1-3 Total Bilirubin 0.50 mg/dL 0.2-1.0 Alkaline Phosphatase 71 U/L 34-104 Alt 27 U/L 7-52 Ast 27 U/L 13-39 Egfr Non- 77.8 >60 Egfr 100.1 >60 22 Lipid Profile (Trig/Chol/HDL) 05/13/2015 Triglycerides 97 mg/dL 23 Cholesterol 180 mg/dL 24 HDL Cholesterol 67.8 mg/dL 25 LDL Cholesterol 93 mg/dL 26 Laboratory test finding 05/13/2015 Vitamin D Total 25(Oh) 39.1 ng/mL 30- 50 Vitamin B12 360 pg/mL 180-914 27 Urine DIP 05/13/2015 Specific [place] 1.015 1.01-1.02 Urine pH 5 5-6 Leukocytes ++ Neg Urine Nitrites neg Neg Total Protein, Urine neg Neg Urine Glucose norm Norm Urine Ketones neg Neg Urobilinogen norm Norm Urine Bilirubin neg Neg Urine Blood neg Neg CBC Auto Diff 05/31/2014 White Blood Count 6.5 10^3/uL 4.8-10.8 Red Blood Count 5.07 10^6/uL 4.0-5.4 Hemoglobin 16.5 g/dL High 12.0-16.0 Hematocrit 49 % High 35-47 Mean Corpuscular Volume 97 fL 80-97 Mean Corpuscular Hemoglobin 33 pg High 27-31 Mean Corpuscular HGB Conc 33 g/dL 31-36 Red Cell Distribution Width 14 % 10.5-15 Platelet Count 233 10^3/uL 150-450 Mean Platelet Volume 9 um3 7.4-10.4 Abs Neutrophils 3.3 10^3/uL 1.5-7.7 Abs Lymphocytes 2.3 10^3/uL 1.0-4.8 Abs Monocytes 0.5 10^3/uL 0-0.8 Abs Eosinophils 0.4 10^3/uL 0-0.6 Abs Basophils 0.1 10^3/uL 0-0.2 Abs Nucleated RBC 0.01 10^3/uL Granulocyte % 49.9 % 38-83 Lymphocyte % 35.4 % 25-47 Monocyte % 7.6 % 1-9 Eosinophil % 6.2 % High 0-6 Basophil % 0.9 % 0-2 Nucleated Red Blood Cells % 0.2 Comp Metabolic Panel 05/31/2014 Sodium 138 mmol/L 133-145 Potassium 4.2 mmol/L 3.5-5.0 28 Chloride 102 mmol/L 101-111 Co2 Carbon Dioxide 31 mmol/L 22-32 Anion Gap 5 mmol/L 2-11 Glucose 87 mg/dL 70-100 Blood Urea Nitrogen 14 mg/dL 6-24 Creatinine 0.73 mg/dL 0.51-0.95 BUN/Creatinine Ratio 19.2 8-20 Calcium 9.5 mg/dL 8.6-10.3 Total Protein 7.5 g/dL 6.4-8.9 Albumin 4.5 g/dL 3.2-5.2 Globulin 3.0 g/dL 2-4 Albumin/Globulin Ratio 1.5 1-3 Total Bilirubin 0.40 mg/dL 0.2-1.0 Alkaline Phosphatase 64 U/L 34-104 Alt 33 U/L 7-52 Ast 27 U/L 13-39 Egfr Non- 83.1 >60 Egfr 106.8 >60 29 Laboratory test finding 05/31/2014 Vitamin B12 465 pg/mL 180-914 30 Erythrocyte Sed Rate 5 mm/Hr 0-30 Rheumatoid Factor <15 IU/mL <15 31 C Reactive Protein < 1.00 mg/L < 5.00 32 Uric Acid 4.0 mg/dL 2.3-6.6 Dalila (Anti-Nuclear AB) Screen Negative Negative TSH (Thyroid Stimulating Horm) 1.25 IU/mL 0.34-5.60 Anti Double Stranded Dna Negative Negative CBC Auto Diff 03/01/2014 White Blood Count 5.7 10^3/uL 4.8-10.8 Red Blood Count 4.84 10^6/uL 4.0-5.4 Hemoglobin 15.4 g/dL 12.0-16.0 Hematocrit 45 % 35-47 Mean Corpuscular Volume 93 fL 80-97 Mean Corpuscular Hemoglobin 32 pg High 27-31 Mean Corpuscular HGB Conc 34 g/dL 31-36 Red Cell Distribution Width 14 % 10.5-15 Platelet Count 187 10^3/uL 150-450 Mean Platelet Volume 8 um3 7.4-10.4 Abs Neutrophils 2.9 10^3/uL 1.5-7.7 Abs Lymphocytes 2.2 10^3/uL 1.0-4.8 Abs Monocytes 0.4 10^3/uL 0-0.8 Abs Eosinophils 0.2 10^3/uL 0-0.6 Abs Basophils 0 10^3/uL 0-0.2 Abs Nucleated RBC 0 10^3/uL Granulocyte % 51.5 % 38-83 Lymphocyte % 37.9 % 25-47 Monocyte % 7.1 % 1-9 Eosinophil % 2.9 % 0-6 Basophil % 0.6 % 0-2 Nucleated Red Blood Cells % 0 Liver Function Panel 03/01/2014 Total Protein 7.3 g/dL 6.4-8.9 Albumin 4.5 g/dL 3.2-5.2 Globulin 2.8 g/dL 2-4 Albumin/Globulin Ratio 1.6 1-3 Total Bilirubin 0.40 mg/dL 0.2-1.0 Direct Bilirubin 0.10 mg/dL 0.03-0.18 Indirect Bilirubin 0.3 mg/dL 0.3-1.0 Alkaline Phosphatase 62 U/L 34-104 Alt 30 U/L 7-52 Ast 26 U/L 13-39 Vitamin D, 25 Hydroxy 03/01/2014 25-Hydroxy Vitamin D2 <4.0 ng/mL 25-Hydroxy Vitamin D3 49 ng/mL 25-Hydroxy Vitamin D Total 49 ng/mL 33 Laboratory test finding 03/01/2014 Vitamin B12 383 pg/mL 180-914 34 Rheumatoid Factor 15 IU/mL <15 35 Lyme Disease Serology Positive Negative 36 TSH (Thyroid Stimulating Horm) 1.44 IU/mL 0.34-5.60 Basic Metabolic Panel 03/01/2014 Sodium 137 mmol/L 133-145 Potassium 4.0 mmol/L 3.7-5.6 Chloride 107 mmol/L 101-111 Co2 Carbon Dioxide 25 mmol/L 22-32 Anion Gap 5 mmol/L 2-11 Glucose 86 mg/dL 70-100 Blood Urea Nitrogen 12 mg/dL 6-24 Creatinine 0.66 mg/dL 0.51-0.95 BUN/Creatinine Ratio 18.2 8-20 Calcium 9.5 mg/dL 8.6-10.3 Egfr Non- 93.3 >60 Egfr 120.0 >60 37 HIV 1/2 AB Evaluation 03/01/2014 HIV 1 2 Antibody Nonreactive Nonreactive 38 Lyme Western Blot 03/01/2014 Lyme Disease IgG Ab WB Positive Negative Lyme Disease IgG Bands Present See Comment kDa 39 Lyme Disease IgM Ab WB Positive Negative Lyme Disease IgM Bands Present p41, p39, kDa Lyme Disease Interpretation See Comment 40 Laboratory test finding 12/24/2013 Rheumatoid Factor 19 IU/mL <15 41 Lyme Disease Serology Positive Negative 42 C Reactive Protein 1.30 mg/L < 5.00 43 Vitamin D, 25 Hydroxy 12/24/2013 25-Hydroxy Vitamin D2 <4.0 ng/mL 25-Hydroxy Vitamin D3 34 ng/mL 25-Hydroxy Vitamin D Total 34 ng/mL 44 Laboratory test finding 12/24/2013 Cyclic Citrullinated Pept <15.6 U 45 IgG Lyme Western Blot 12/24/2013 Lyme Disease IgG Ab WB Positive Negative Lyme Disease IgG Bands Present See Comment kDa 46 Lyme Disease IgM Ab WB Positive Negative Lyme Disease IgM Bands Present p41, p39, kDa Lyme Disease Interpretation See Comment 47 Comp Metabolic Panel 11/21/2013 Sodium 137 mmol/L 133-145 Potassium 4.1 mmol/L 3.7-5.6 Chloride 106 mmol/L 101-111 Co2 Carbon Dioxide 26 mmol/L 22-32 Anion Gap 5 mmol/L 2-11 Glucose 83 mg/dL 70-100 Blood Urea Nitrogen 14 mg/dL 6-24 Creatinine 0.60 mg/dL 0.51-0.95 BUN/Creatinine Ratio 23.3 High 8-20 Calcium 9.0 mg/dL 8.6-10.3 Total Protein 7.0 g/dL 6.4-8.9 Albumin 3.8 g/dL 3.2-5.2 Globulin 3.2 g/dL 2-4 Albumin/Globulin Ratio 1.2 1-3 Total Bilirubin 0.50 mg/dL 0.2-1.0 Alkaline Phosphatase 62 U/L 34-104 Alt 19 U/L 7-52 Ast 19 U/L 13-39 Egfr Non- 104.2 >60 Egfr 134.0 >60 48 Laboratory test finding 11/21/2013 Uric Acid 3.6 mg/dL 2.3-6.6 C Reactive Protein 26.99 mg/L High < 5.00 49 CBC Auto Diff 11/21/2013 White Blood Count 9.1 10^3/uL 4.8-10.8 Red Blood Count 4.80 10^6/uL 4.0-5.4 Hemoglobin 14.9 g/dL 12.0-16.0 Hematocrit 45 % 35-47 Mean Corpuscular Volume 93 fL 80-97 Mean Corpuscular Hemoglobin 31 pg 27-31 Mean Corpuscular HGB Conc 33 g/dL 31-36 Red Cell Distribution Width 14 % 10.5-15 Platelet Count 281 10^3/uL 150-450 Mean Platelet Volume 8 um3 7.4-10.4 Abs Neutrophils 5.5 10^3/uL 1.5-7.7 Abs Lymphocytes 2.5 10^3/uL 1.0-4.8 Abs Monocytes 0.8 10^3/uL 0-0.8 Abs Eosinophils 0.2 10^3/uL 0-0.6 Abs Basophils 0 10^3/uL 0-0.2 Abs Nucleated RBC 0 10^3/uL Granulocyte % 60.7 % 38-83 Lymphocyte % 27.9 % 25-47 Monocyte % 8.7 % 1-9 Eosinophil % 2.3 % 0-6 Basophil % 0.4 % 0-2 Nucleated Red Blood Cells % 0 Laboratory test finding 11/21/2013 Erythrocyte Sed Rate 27 mm/Hr 0-30 CBC Auto Diff 11/09/2013 White Blood Count 8.4 10^3/uL 4.8-10.8 Red Blood Count 4.87 10^6/uL 4.0-5.4 Hemoglobin 15.6 g/dL 12.0-16.0 Hematocrit 45 % 35-47 Mean Corpuscular Volume 93 fL 80-97 Mean Corpuscular Hemoglobin 32 pg High 27-31 Mean Corpuscular HGB Conc 34 g/dL 31-36 Red Cell Distribution Width 14 % 10.5-15 Platelet Count 270 10^3/uL 150-450 Mean Platelet Volume 8 um3 7.4-10.4 Abs Neutrophils 5.1 10^3/uL 1.5-7.7 Abs Lymphocytes 2.2 10^3/uL 1.0-4.8 Abs Monocytes 0.7 10^3/uL 0-0.8 Abs Eosinophils 0.4 10^3/uL 0-0.6 Abs Basophils 0 10^3/uL 0-0.2 Abs Nucleated RBC 0.01 10^3/uL Granulocyte % 60.5 % 38-83 Lymphocyte % 26.1 % 25-47 Monocyte % 7.8 % 1-9 Eosinophil % 5.2 % 0-6 Basophil % 0.4 % 0-2 Nucleated Red Blood Cells % 0.1 Laboratory test finding 11/09/2013 Uric Acid 3.6 mg/dL 2.3-6.6 Rheumatoid Factor 16 IU/mL <15 50 Dalila (Anti-Nuclear AB) Screen Negative Negative Lyme Disease Serology Positive Negative 51 Comp Metabolic Panel 11/09/2013 Sodium 137 mmol/L 133-145 Potassium 4.0 mmol/L 3.7-5.6 Chloride 104 mmol/L 101-111 Co2 Carbon Dioxide 28 mmol/L 22-32 Anion Gap 5 mmol/L 2-11 Glucose 86 mg/dL 70-100 Blood Urea Nitrogen 11 mg/dL 6-24 Creatinine 0.63 mg/dL 0.51-0.95 BUN/Creatinine Ratio 17.5 8-20 Calcium 8.8 mg/dL 8.6-10.3 Total Protein 7.2 g/dL 6.4-8.9 Albumin 4.1 g/dL 3.2-5.2 Globulin 3.1 g/dL 2-4 Albumin/Globulin Ratio 1.3 1-3 Total Bilirubin 0.40 mg/dL 0.2-1.0 Alkaline Phosphatase 65 U/L 34-104 Alt 19 U/L 7-52 Ast 24 U/L 13-39 Egfr Non- 98.5 >60 Egfr 126.6 >60 52 Lyme Western Blot 11/09/2013 Lyme Disease IgG Ab WB Positive Negative Lyme Disease IgG Bands Present See Comment kDa 53 Lyme Disease IgM Ab WB Positive Negative Lyme Disease IgM Bands Present p41, p39, kDa Lyme Disease Interpretation See Comment 54 Surgical Pathology 08/06/2013 S RUN DATE: 08/07/ <SEE 55 NOTE> Laboratory test finding 07/17/2013 Creatine Kinase 43 U/L 0-200 TSH (Thyroid Stimulating Horm) 1.61 miu/mL 0.34-5.60 Comp Metabolic Panel 07/17/2013 Sodium 140 mmol/L 133-145 Potassium 4.1 mmol/L 3.5-5.0 Chloride 105 mmol/L 101-111 Co2 Carbon Dioxide 30.0 mmol/L 22-32 Anion Gap 5.0 mmol/L 2-11 Glucose 80 mg/dL 70-100 Blood Urea Nitrogen 10 mg/dL 6-24 Creatinine 0.80 mg/dL 0.50-1.40 BUN/Creatinine Ratio 12.5 8-20 Calcium 9.6 mg/dL 8.1-9.9 Total Protein 7.0 g/dL 6.2-8.1 Albumin 4.2 g/dL 3.6-5.4 Globulin 2.8 g/dL 2-4 Albumin/Globulin Ratio 1.5 1-3 Total Bilirubin 0.6 mg/dL 0.4-1.5 Alkaline Phosphatase 66 U/L 30-110 Alt 32 U/L 14-54 Ast 33 U/L 12-42 Egfr Non- 74.7 >60 Egfr 96.1 >60 56 Arthritis Panel 09/21/2012 Erythrocyte Sed Rate 3 mm/Hr 0-30 Uric Acid 4.3 mg/dL 2.6-7.2 Dalila (Anti-Nuclear AB) Screen Negative Negative Rheumatoid Factor <15 IU/mL <15 57 Laboratory test 09/21/2012 Lyme Disease Serology Negative Negative 58 finding Laboratory test 08/17/2012 Cytology RUN DATE: finding <SEE NOTE> Urine DIP 08/17/2012 Leukocytes NEG Neg Urine Nitrites NEG Neg Urine pH 5 5-6 Total Protein, Urine NEG Neg Urine Glucose NORM Norm Urine Ketones NEG Neg Urobilinogen NORM Norm Urine Bilirubin NEG Neg Urine Blood NEG Neg Specific [place] NA Low 1.01-1.02 Comp Metabolic Panel 08/14/2012 Sodium 140 mmol/L 133-145 Potassium 4.0 mmol/L 3.5-5.0 Chloride 106 mmol/L 101-111 Co2 Carbon Dioxide 29.0 mmol/L 22-32 Anion Gap 5.0 mmol/L 2-11 Glucose 100 mg/dL 70-100 Blood Urea Nitrogen 14 mg/dL 6-24 Creatinine 0.80 mg/dL 0.50-1.40 BUN/Creatinine Ratio 17.5 8-20 Calcium 9.3 mg/dL 8.1-9.9 Total Protein 6.2 g/dL 6.2-8.1 Albumin 4.3 g/dL 3.6-5.4 Globulin 1.9 g/dL Low 2-4 Albumin/Globulin Ratio 2.3 1-3 Total Bilirubin 0.7 mg/dL 0.4-1.5 Alkaline Phosphatase 74 U/L 30-110 Alt 38 U/L 14-54 Ast 30 U/L 12-42 Egfr Non- 75.0 >60 Egfr 96.5 >60 60 CBC Auto Diff 08/14/2012 White Blood Count 6.5 10^3/uL 4.8-10.8 Red Blood Count 4.96 10^6/uL 4.0-5.4 Hemoglobin 16.0 g/dL 12.0-16.0 Hematocrit 47 % 35-47 Mean Corpuscular Volume 96 fL 80-97 Mean Corpuscular Hemoglobin 32 pg High 27-31 Mean Corpuscular HGB Conc 34 g/dL 31-36 Red Cell Distribution Width 13 % 10.5-15 Platelet Count 215 10^3/uL 150-450 Mean Platelet Volume 9 um3 7.4-10.4 Abs Neutrophils 3.4 10^3/uL 1.5-7.7 Abs Lymphocytes 2.2 10^3/uL 1.0-4.8 Abs Monocytes 0.5 10^3/uL 0-0.8 Abs Eosinophils 0.4 10^3/uL 0-0.6 Abs Basophils 0 10^3/uL 0-0.2 Abs Nucleated RBC 0.01 10^3/uL Granulocyte % 52.3 % 38-83 Lymphocyte % 33.6 % 25-47 Monocyte % 8.0 % 1-9 Eosinophil % 5.5 % 0-6 Basophil % 0.6 % 0-2 Nucleated Red Blood Cells % 0.2 Lipid Profile (Trig/Chol/HDL) 08/14/2012 Triglycerides 93 mg/dL 40-200 Cholesterol 173 mg/dL Less than 200 HDL Cholesterol 55 mg/dL 40-60 61 Cholesterol/HDL Ratio 3.2 Average 1-4.44 LDL Cholesterol 99.4 mg/dL Less Than 100 62 Laboratory test finding 08/14/2012 Hemoglobin A1c 6.1 % High Less than 6.0 63 CBC Auto Diff 02/11/2012 White Blood Count 6.1 Red Cell Count 4.76 Hemoglobin 16.1 High Hematocrit 46 Mean Corpuscular Volume 97 Mean Corpuscular Hemoglob 34 High Mean Corpuscular HGB Cone 35 Redcell Distribution WDTH 14 Platelet Count 199 Mean Platelet Volume 8.9 Gran % 53.4 Lymph % 31.4 Mononuclear % 9.0 Eosinophil % 5.6 Basophil % 0.6 Abs Lymphs 1.9 Abs Mononuclear 0.5 Absolute Neutrophil Count 3.3 Abs Eosinophils 0.3 Abs Basophils 0 Laboratory test finding 02/11/2012 Hemoglobin A1c 5.6 64 Lipid Profile (Trig/Chol/HDL) 02/11/2012 Triglyceride 135 Cholesterol 202 High 65 High Density Lipoprotein 60 66 Cholesterol/HDL Ratio 3.37 Low Density Lipoprotein 115 High 67 Comp Metabolic Panel 02/11/2012 Sodium 138 Potassium 4.2 Chloride 106 Co2 (Carbon Dioxide) 26.0 Anion Gap 6.0 68 Glucose 92 BUN 12 Creatinine 0.8 One Over Creatinine 1.25 BUN/Creatinine Ratio 15.0 Calcium 9.4 Total Protein 6.6 Albumin 3.9 Globulin 2.7 Albumin/Globulin Ratio 1.4 Bilirubin Total 0.8 69 Alkaline Phosphatase 89 Alt (SGPT) 26 Ast (Sgot) 28 eGFR Non- 75.3 eGFR 96.9 70 Comp Metabolic Panel 07/29/2011 Sodium 141 mmol/L 135-145 Potassium 4.4 mmol/L 3.5-5.0 Chloride 106 mmol/L 101-111 Co2 (Carbon Dioxide) 30.0 mmol/L 22-32 Anion Gap 5.0 mmol/L 2-11 71 Glucose 91 mg/dL 70-100 BUN 12 mg/dL 6-24 Creatinine 0.8 mg/dL 0.50-1.40 One Over Creatinine 1.25 BUN/Creatinine Ratio 15.0 8-20 Calcium 9.1 mg/dL 8.1-9.9 Total Protein 6.8 GM/DL 6.2-8.1 Albumin 4.0 GM/DL 3.6-5.4 Globulin 2.8 GM/DL 2-4 Albumin/Globulin Ratio 1.4 1-3 Bilirubin Total 0.5 mg/dL 0.4-1.5 72 Alkaline Phosphatase 92 U/L 30-110 Alt (SGPT) 37 U/L 14-54 Ast (Sgot) 30 U/L 12-42 eGFR Non- 75.3 > 60 eGFR 96.9 > 60 73 Lipid Profile (Trig/Chol/HDL) 07/29/2011 Triglyceride 155 mg/dL 40-200 Cholesterol 184 mg/dL Less Than 200 74 High Density Lipoprotein 44 mg/dL 40-60 75 Cholesterol/HDL Ratio 4.18 AVERAGE 1-4.44 Low Density Lipoprotein 109 mg/dL High Less Than 100 76 Laboratory test finding 07/29/2011 Hemoglobin A1c 5.7 % Less Than 6.0 77 Statin 01/25/2011 Ast (Sgot) 44 U/L High 12-42 Alt (SGPT) 52 U/L 14-54 Lipid Profile (Trig/Chol/HDL) 01/25/2011 Triglyceride 181 mg/dL 40-200 Cholesterol 204 mg/dL High Less Than 200 78 High Density Lipoprotein 57 mg/dL 40-60 79 Cholesterol/HDL Ratio 3.58 AVERAGE 1-4.44 Low Density Lipoprotein 111 mg/dL High Less Than 100 80 Laboratory test finding 01/25/2011 Hemoglobin A1c 6.0 % Less Than 6.0 81 Glucose 96 mg/dL 70-100 Basic Metabolic Panel 07/31/2010 Sodium 139 mmol/L 135-145 82 Potassium 4.1 mmol/L 3.5-5.0 82 Chloride 105 mmol/L 101-111 82 Co2 (Carbon Dioxide) 28.0 mmol/L 22-32 82 Anion Gap 6.0 mmol/L 2-11 82, 83 Glucose 98 mg/dL 70-100 82 BUN 16 mg/dL 6-24 82 Creatinine 0.80 mg/dL 0.50-1.40 82 One Over Creatinine 1.20 82 BUN/Creatinine Ratio 20.0 8-20 82 Calcium 9.4 mg/dL 8.1-9.9 82 eGFR Non- 80.4 > 60 82 eGFR 97.3 > 60 82, 84 CBC With Electronic Diff 07/31/2010 White Blood Count 5.7 CUMM 4.8-10.8 82 Red Cell Count 4.69 CUMM 4.2-5.4 82 Hemoglobin 15.7 g/dL 12.0-16.0 82 Hematocrit 45 % 35-47 82 Mean Corpuscular Volume 95 um3 79-97 82 Mean Corpuscular Hemoglob 33 pg High 27-31 82 Mean Corpuscular HGB Cone 35 g/dL 32-36 82 Redcell Distribution WDTH 13 % 10.5-15 82 Platelet Count 196 CUMM 150-450 82 Mean Platelet Volume 7.7 um3 7.4-10.4 82 Gran % 44.8 % 38-83 82 Lymph % 40.1 % 25-47 82 Mononuclear % 8.7 % 1-9 82 Eosinophil % 5.8 % 0-6 82 Basophil % 0.6 % 0-2 82 Abs Lymphs 2.3 1.0-4.8 82 Abs Mononuclear 0.5 0-0.8 82 Absolute Neutrophil Count 2.6 1.5-7.7 82 Abs Eosinophils 0.3 0-0.6 82 Abs Basophils 0 0-0.2 82 Urine DIP 07/28/2010 Leukocytes NEG Neg Urine Nitrites NEG Neg Urine pH 6 5-6 Total Protein, Urine NEG Neg Urine Glucose NORM Norm Urine Ketones NEG Neg Urobilinogen NORM Norm Urine Bilirubin NEG Neg Urine Blood NEG Neg Specific [place] NA Low 1.01-1.02 Comp Metabolic Panel 07/28/2010 Sodium 139 mmol/L 135-145 Potassium 4.0 mmol/L 3.5-5.0 Chloride 104 mmol/L 101-111 Co2 (Carbon Dioxide) 29.0 mmol/L 22-32 Anion Gap 6.0 mmol/L 2-11 85 Glucose 91 mg/dL 70-100 BUN 11 mg/dL 6-24 Creatinine 0.60 mg/dL 0.50-1.40 One Over Creatinine 1.60 BUN/Creatinine Ratio 18.3 8-20 Calcium 9.7 mg/dL 8.1-9.9 Total Protein 6.6 GM/DL 6.2-8.1 Albumin 4.5 GM/DL 3.6-5.4 Globulin 2.1 GM/DL 2-4 Albumin/Globulin Ratio 2.1 1-3 Bilirubin Total 0.7 mg/dL 0.4-1.5 86 Alkaline Phosphatase 85 U/L 30-110 Alt (SGPT) 47 U/L 14-54 Ast (Sgot) 39 U/L 12-42 eGFR Non- 112.0 > 60 eGFR 135.5 > 60 87 CBC With Electronic Diff 07/28/2010 White Blood Count 6.1 CUMM 4.8-10.8 Red Cell Count 4.75 CUMM 4.2-5.4 Hemoglobin 16.1 g/dL High 12.0-16.0 Hematocrit 46 % 35-47 Mean Corpuscular Volume 96 um3 79-97 Mean Corpuscular Hemoglob 34 pg High 27-31 Mean Corpuscular HGB Cone 35 g/dL 32-36 Redcell Distribution WDTH 13 % 10.5-15 Platelet Count 218 CUMM 150-450 Mean Platelet Volume 8.2 um3 7.4-10.4 Gran % 47.6 % 38-83 Lymph % 38.2 % 25-47 Mononuclear % 9.1 % High 1-9 Eosinophil % 4.6 % 0-6 Basophil % 0.5 % 0-2 Abs Lymphs 2.3 1.0-4.8 Abs Mononuclear 0.6 0-0.8 Absolute Neutrophil Count 2.9 1.5-7.7 Abs Eosinophils 0.3 0-0.6 Abs Basophils 0 0-0.2 Lipid Profile (Trig/Chol/HDL) 06/22/2010 Triglyceride 141 mg/dL 40-200 88 Cholesterol 209 mg/dL High Less Than 200 88, 89 High Density Lipoprotein 53 mg/dL 40-60 88, 90 Cholesterol/HDL Ratio 3.94 AVERAGE 1-4.44 88 Low Density Lipoprotein 128 mg/dL High Less Than 100 88, 91 Statin 06/22/2010 Ast (Sgot) 38 U/L 12-42 88 Alt (SGPT) 48 U/L 14-54 88 Laboratory test finding 06/22/2010 Glucose 103 mg/dL High 70-100 88, 92 Statin 12/25/2009 Ast (Sgot) 39 U/L 12-42 Alt (SGPT) 43 U/L 14-54 Lipid Profile (Trig/Chol/HDL) 12/25/2009 Triglyceride 188 mg/dL 40-200 Cholesterol 210 mg/dL High Less Than 200 93 High Density Lipoprotein 53 mg/dL 40-60 94 Cholesterol/HDL Ratio 3.96 AVERAGE 1-4.44 Low Density Lipoprotein 119 mg/dL High Less Than 100 95 Laboratory test finding 12/25/2009 Glucose 97 mg/dL 70-100 96 Statin 09/20/2009 Ast (Sgot) 40 U/L 12-42 Alt (SGPT) 48 U/L 14-54 Lipid Profile (Trig/Chol/HDL) 09/20/2009 Triglyceride 110 mg/dL 40-200 Cholesterol 197 mg/dL Less Than 200 97 High Density Lipoprotein 69 mg/dL High 40-60 98 Cholesterol/HDL Ratio 2.86 AVERAGE 1-4.44 Low Density Lipoprotein 106 mg/dL High Less Than 100 99 Laboratory test finding 09/20/2009 CPK (Creatine Kinase) 153 U/L 0-170 Glucose 101 mg/dL High 70-100 100 Statin 07/07/2009 Ast (Sgot) 30 U/L 12-42 Alt (SGPT) 37 U/L 14-54 Lipid Profile (Trig/Chol/HDL) 07/07/2009 Triglyceride 214 mg/dL High 40- 200 Cholesterol 337 mg/dL High Less Than 200 101 High Density Lipoprotein 60 mg/dL 40-60 102 Cholesterol/HDL Ratio 5.62 AVERAGE High 1-4.44 Low Density Lipoprotein 234 mg/dL High Less Than 100 103 Liver Function Panel 01/08/2009 Total Protein 7.2 GM/DL 6.2-8.1 Albumin 4.4 GM/DL 3.6-5.4 Globulin 2.8 GM/DL 2-4 Albumin/Globulin Ratio 1.6 1-3 Bilirubin Total 1.0 mg/dL 0.4-1.5 104 Bilirubin Direct 0.1 mg/dL 0.1-0.5 Indirect Bilirubin 0.9 mg/dL High 0.1-0.75 Alkaline Phosphatase 104 U/L 30-110 Alt (SGPT) 31 U/L 14-54 Ast (Sgot) 27 U/L 12-42 Lipid Profile (Trig/Chol/HDL) 01/08/2009 Triglyceride 267 mg/dL High 40- 200 Cholesterol 310 mg/dL High Less Than 200 105 High Density Lipoprotein 50 mg/dL 40-60 106 Cholesterol/HDL Ratio 6.20 AVERAGE High 1-4.44 Low Density Lipoprotein 207 mg/dL High Less Than 100 107 Laboratory test finding 01/08/2009 Cytology <SEE NOTE> 108 Urine DIP 01/08/2009 Leukocytes NEG Neg Urine Nitrites NEG Neg Urine pH 5 5-6 Total Protein, Urine NEG Neg Urine Glucose NORM Norm Urine Ketones NEG Neg Urobilinogen NORM Norm Urine Bilirubin NEG Neg Urine Blood NEG Neg Specific [place] NA Low 1.01-1.02 Surgical Pathology 10/28/2008 Surgical Pathology <SEE 109 NOTE> Hepatitis C PCR 04/12/2007 HCV Rna Quant [id number] IU/mL High <5 Monitoring HCV Rna Quant PCR [id number] COPY/ML High <10 110 Laboratory test finding 04/12/2007 TSH 1.14 MIU/ML 0.34-5.60 Comp Metabolic Panel 04/12/2007 One Over Creatinine 1.11 Anion Gap 9.0 mmol/L 2-11 111 Albumin/Globulin Ratio 1.5 1-3 Albumin 4.3 GM/DL 3.6-5.4 Alkaline Phosphatase 62 U/L 30-110 Alt (SGPT) 28 U/L 14-54 Ast (Sgot) 28 U/L 12-42 BUN 16 mg/dL 6-24 Calcium 9.0 mg/dL 8.7-10.2 Chloride 102 mmol/L 101-111 Co2 (Carbon Dioxide) 28.0 mmol/L 22-32 Globulin 2.8 GM/DL 2-4 Glucose 82 mg/dL 70-105 Potassium 4.0 mmol/L 3.5-5.0 Sodium 139 mmol/L 135-145 Bilirubin Total 1.1 mg/dL 0.4-1.5 Total Protein 7.1 GM/DL 6.2-8.1 BUN/Creatinine Ratio 17.8 8-20 Creatinine 0.9 mg/dL 0.5-1.4 CBC With Electronic Diff 04/12/2007 White Blood Count 6.1 CUMM 4.8-10.8 Abs Basophils 0 0-0.2 Abs Eosinophils 0.2 0-0.6 Absolute Neutrophil Count 3.0 1.5-7.7 Abs Lymphs 2.4 1.0-4.8 Abs Mononuclear 0.5 0-0.8 Basophil % 0.7 % 0-2 Hematocrit 49 % High 35-47 Hemoglobin 16.8 g/dL High 12.0-16.0 Eosinophil % 3.4 % 0-6 Gran % 49.3 % 38-83 Lymph % 38.6 % 20-45 Mean Corpuscular HGB Cone 34 g/dL 32-36 Mean Corpuscular Hemoglob 33 pg High 27-31 Mean Corpuscular Volume 96 um3 79-97 Mean Platelet Volume 8.6 um3 7.4-10.4 Mononuclear % 8.0 % 1-9 Platelet Count 219 CUMM 150-450 Red Cell Count 5.11 CUMM 4.2-5.4 Redcell Distribution WDTH 14 % 10.5-15 Lipid Profile 04/12/2007 Cholesterol/HDL Ratio 4.48 AVERAGE High 1-4.44 (Trig/Chol/HDL) Cholesterol 287 mg/dL High Less Than 200 112 Triglyceride 107 mg/dL 40-200 High Density Lipoprotein 64 mg/dL High 40-60 113 Low Density Lipoprotein 202 mg/dL High Less Than 100 114 1 [id number] Because ethnic data is not always readily [...] 15-29 5 Kidney failure <15 (or dialysis) 3 Desirable: <150 Borderline High: 150-199 High: 200-499 Very High: >500 4 Desirable: <200 Borderline High: 200-239 High: >239 5 Low: <40 Desirable: 40-60 High: >60 6 Desirable: <100 Near Optimal: 100-129 Borderline High: 130-159 High: 160-189 Very High: >189 7 A negative result does not exclude infection with Borrelia burgdorferi. Serologic testing as per CDC guidelines may be indicated. ADDITIONAL INFORMATION This test was developed and its performance characteristics determined by [facility] in a manner consistent with CLIA requirements. This test has not been cleared or approved by the U.S. Food and Drug Administration. 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 ADDITIONAL INFORMATION CDC criteria require >=5 bands for IgG or >=2 bands for IgM for the Immunoblot to be considered positive. Bands (e.g.,p41) may be detected in patients without Lyme disease, and patterns not meeting the CDC criteria should be interpreted with caution. Immunoblot should be ordered only on specimens that are positive or equivocal by a FDA-licensed Lyme disease antibody screening test (e.g., EIA). Test Performed by: [facility] [address] [place] [address] 10 Result in log IU/mL is 6.53. ADDITIONAL INFORMATION The quantification range of this assay is 15 to 100,000,000 IU/mL (1.18 log to 8.00 log IU/mL). Testing was performed by the ROBERT AmpliPrep/ROBERT TaqMan HCV Test, version 2.0 ([employer] Test Performed by: [facility] [address] [place] [address] 11 Because ethnic data is not always readily [...] 15-29 5 Kidney failure <15 (or dialysis) 12 Desirable <150 Borderline high 150-199 High 200-499 Very High >500 13 Desirable <200 Borderline high 200-239 High >239 14 Low <40 Desirable: 40-60 High: >60 15 Desirable: <100 mg/dL Near Optimal: 100-129 mg/dL Borderline High: 130-159 mg/dL High: 160-189 mg/dL Very High: >189 mg/dL 16 Normal Range 180 to 914 Indeterminate Range 145 to 180 Deficient Range <145 17 [id number] ADDITIONAL INFORMATION This test was performed using the Malave RealTime HCV Genotype II assay ([employer] [place], [place]). Test Performed by: [place] [address] Accounting Manager Assistant Controller: Fredy Cardenas II, M.D., Ph.D. 19 Result in log IU/mL is 6.33. ADDITIONAL INFORMATION The quantification range of this assay is 15 to 100,000,000 IU/mL (1.18 log to 8.00 log IU/mL). Testing was performed by the ROBERT AmpliPrep/ROBERT TaqMan HCV Test, version 2.0 ([employer] Test Performed by: [place] [address] Accounting Manager Assistant Controller: Fredy Cardenas II, M.D., Ph.D. 20 SEE RESULT BELOW Name: BETH ASTUDILLO : [address]: Kristy Echeverria NP Acct: [id number] Unit: [id number] AGE: 54 Location: [facility] Re05/13/15 SEX: F Status: REG REF SPEC: [id number] PATRICIA: 05/13/15-[address] [facility] [address]: Kristy Echeverria NP REQ: [id number] RECD: 05/13/15-1258 STATUS: SOUT _ ORDERED: IMAGE ANALYSIS, HPV/Thin Prep, HPV 16/18 GENE FINAL DIAGNOSIS Negative for Intraepithelial lesion or Malignancy A. Ectocervical/Endocervical Specimen Adequacy: Satisfactory of evaluation Transformation zone component identified Patient Information: HPV: High risk HPV RNA testing regardless of pap results. HPV 16/18 Genotype for HPV pos Actual Specimen Date: 05/13/15 Date of Last Specimen: 08/17/12 Post Menopausal?: Y Date Time Test Result Flag (u) Normal Range 05/13/15 1037 HPV RNA RFLX GE Negative Negative The high-risk HPV types detected by the assay include: 16, 18, 31, 33, 35, 39, 45, 51, 52, 56, 58, 59, 66, and 68. Signed (signature on file) GUILLAUME Marshall (ASCP) 05/14 1301 This Pap test was evaluated with the assistance of the [employer] Test Imaging System. Due to cytologic findings at the supervisor blood donor recruiters microscope, comprehensive manual rescreening by a Asian Studies Program Chair may be required. The Pap Smear is a screening test designed to aid in the detection of premalignant and malignant conditions of the uterine cervix. It is not a diagnostic procedure and should not be used as the sole means of detecting cervical cancer. Both false- positive and false- negative reports do occur. Depending on your risk status, a Pap smear should be obtained and evaluated every 1-3 years. END OF REPORT * ML=Testing performed at Main Lab DEPARTMENT OF PATHOLOGY, [address] [place] [address] Rolando Hernandez M.D. Director [facility] # [id number] 21 The high-risk HPV types detected by the assay include: 16, 18, 31, 33, 35, 39, 45, 51, 52, 56, 58, 59, 66, and 68. 22 Because ethnic data is not always readily [...] 15-29 5 Kidney failure <15 (or dialysis) 23 Desirable <150 Borderline high 150-199 High 200-499 Very High >500 24 Desirable <200 Borderline high 200-239 High >239 25 Low <40 Desirable: 40-60 High: >60 26 Desirable: <100 mg/dL Near Optimal: 100-129 mg/dL Borderline High: 130-159 mg/dL High: 160-189 mg/dL Very High: >189 mg/dL 27 Normal Range 180 to 914 Indeterminate Range 145 to 180 Deficient Range <145 28 Potassium reference range changed effective 05/12/14 29 Because ethnic data is not always readily [...] 15-29 5 Kidney failure <15 (or dialysis) 30 Normal Range 180 to 914 Indeterminate Range 145 to 180 Deficient Range <145 31 Test Performed by: [place] [address] Accounting Manager Assistant Controller: Salbador Hankins M.D. 32 Acute inflammation: >10.00 33 -- REFERENCE VALUE -- 25-HYDROXY D TOTAL (D2+D3) Optimum levels in the healthy population are 20-50, patients with bone disease may benefit from higher levels within this range. Test Performed by: [place] [address] Accounting Manager Assistant Controller: Chema Garcia III, M.D. 34 Normal Range 180 to 914 Indeterminate Range 145 to 180 Deficient Range <145 35 Test Performed by: [place] [address] Accounting Manager Assistant Controller: Chema Garcia III, M.D. 36 Not diagnostic. Supplemental testing ordered by reflex. Test Performed by: [place] [address] Accounting Manager Assistant Controller: Chema Garcia III, M.D. 37 Because ethnic data is not always readily [...] 15-29 5 Kidney failure <15 (or dialysis) 38 It is recognized that currently available assays for the detection of antibodies to HIV-1 and/or HIV-2 may not detect all infected individuals. HIV antibodies may be undetectable in some stages of the infection and in some clinical conditions. The performance of this assay has not been established for populations of infants or children. Assayed by Chemiluminescence Microparticle Immunoassay on the Siemens Advia Centaur CP. Values obtained with different methods or kits cannot be used interchangeably.The diagnostic specificity of the ADVIA Centaur 1/O/2 Enhanced assay in the low risk population was 99.90% (6052/6058) with a 95% confidence interval of 99.78 to 99.96%. 39 RESULT: p93, p66, p58, p41, p39, p30, p28, p23, p18, 40 Consistent with active or previous infection for B. burgdorferi. IgM blot criteria is of diagnostic utility only during the first 4 weeks of early Lyme disease. CDC criteria require >=5 bands for IgG or >=2 bands for IgM for the Immunoblot to be considered positive. Bands (e.g.,p41) may be detected in patients without Lyme disease, and patterns not meeting the CDC criteria should be interpreted with caution. Immunoblot should be ordered only on specimens that are positive or equivocal by a FDA-licensed Lyme disease antibody screening test (e.g., EIA). Test Performed by: [place] [address] Accounting Manager Assistant Controller: Chema Garcia III, M.D. 41 Test Performed by: [place] [address] Accounting Manager Assistant Controller: Chema Garcia III, M.D. 42 Not diagnostic. Supplemental testing ordered by reflex. Test Performed by: [place] [address] Accounting Manager Assistant Controller: Chema Garcia III, M.D. 43 Acute inflammation: >10.00 44 -- REFERENCE VALUE -- 25-HYDROXY D TOTAL (D2+D3) Optimum levels in the healthy population are 20-50, patients with bone disease may benefit from higher levels within this range. Test Performed by: [place] [address] Accounting Manager Assistant Controller: Chema Garcia III, M.D. 45 -- REFERENCE VALUE -- <20.0 (Negative) Test Performed by: [place] [address] Accounting Manager Assistant Controller: Chema Garcia III, M.D. 46 RESULT: p93, p66, p58, p41, p39, p23, p18, 47 Consistent with active or previous infection for B. burgdorferi. IgM blot criteria is of diagnostic utility only during the first 4 weeks of early Lyme disease. CDC criteria require >=5 bands for IgG or >=2 bands for IgM for the Immunoblot to be considered positive. Bands (e.g.,p41) may be detected in patients without Lyme disease, and patterns not meeting the CDC criteria should be interpreted with caution. Immunoblot should be ordered only on specimens that are positive or equivocal by a FDA-licensed Lyme disease antibody screening test (e.g., EIA). Test Performed by: [place] [address] Accounting Manager Assistant Controller: Chema Garcia III, M.D. 48 Because ethnic data is not always readily [...] 15-29 5 Kidney failure <15 (or dialysis) 49 Acute inflammation: >10.00 50 Test Performed by: [facility] [address] [place] [address] Accounting Manager Assistant Controller: Chema Garcia III, M.D. 51 Not diagnostic. Supplemental testing ordered by reflex. Test Performed by: [place] [address] Accounting Manager Assistant Controller: Chema Garcia III, M.D. 52 Because ethnic data is not always readily [...] 15-29 5 Kidney failure <15 (or dialysis) 53 RESULT: p93, p66, p58, p45, p41, p39, p30, p28, p23, p18, 54 Consistent with active or previous infection for B. burgdorferi. IgM blot criteria is of diagnostic utility only during the first 4 weeks of early Lyme disease. CDC criteria require >=5 bands for IgG or >=2 bands for IgM for the Immunoblot to be considered positive. Bands (e.g.,p41) may be detected in patients without Lyme disease, and patterns not meeting the CDC criteria should be interpreted with caution. Immunoblot should be ordered only on specimens that are positive or equivocal by a FDA-licensed Lyme disease antibody screening test (e.g., EIA). Test Performed by: [address] [place] [address] Accounting Manager Assistant Controller: Chema Garcia III, M.D. 55 RUN DATE: 08/07/13 [facility] LAB LIVE PAGE 1 RUN TIME: [address] [place] [address] Specimen Inquiry Name: BETH ASTUDILLO : [address]: Mark Douglass MD Acct: [id number] Unit: [id number] AGE: 53 Location: ENDO Re08/06/13 SEX: F Status: REG REF SPEC: [id number] PATRICIA: 08/06/13- SUBM DR: Mark Douglass MD REQ: [id number] RECD: 08/06/13-1205 STATUS: EVERT PAZ DR: Vu Butts MD _ ORDERED: LEVEL IV/2 FINAL DIAGNOSIS 1. Colon, transverse, biopsy: Hyperplastic polyp. 2. Colon, at 30 cm., biopsy: Hyperplastic polyp. CLINICAL HISTORY Screening colonoscopy POST-OPERATIVE DIAGNOSIS Screening colonoscopy into cecum, prep good - 2 small polyps removed GROSS DESCRIPTION 1. The specimen is received in formalin labeled Beth Astudillo, Biopsy Transverse Colon Polyp, and consists of a 0.6 x 0.5 x 0.2 cm. aggregate of multiple everett-pink, irregular soft tissue fragments. Submitted entirely, one cassette. 2. The specimen is received in formalin labeled Beth Astudillo, Biopsy Colon Polyp at 30 cm., and consists of 0.4 x 0.3 x 0.2 cm. everett-pink, irregular soft tissue fragment. Submitted entirely, one cassette. 1. Signed (signature on file) Grazyna Torres MD 1454 END OF REPORT * ML=Testing performed at [facility] DEPARTMENT OF PATHOLOGY, [address] [place] [address] Rolando Hernandez M.D. Director [facility] Permit #[id number] 56 Because ethnic data is not always readily [...] 15-29 5 Kidney failure <15 (or dialysis) 57 Test Performed by: [address] [address] Accounting Manager Assistant Controller: Chema Garcia III, M.D. 58 Serologic response to B. burgdorferi infection is not detected, but cannot rule out early infection during which low or undetectable antibody levels to B. burgdorferi may be present. If clinically indicated, a new serum specimen should be submitted in 7-14 days. Test Performed by: [facility] - [address] [address] Accounting Manager Assistant Controller: Chema Garcia III, M.D. 59 RUN DATE: 08/18/12 [facility] LAB LIVE PAGE 1 RUN TIME: [address] [place] [address] Specimen Inquiry Name: BETH ASTUDILLO Ana : [address]: Vu Butts MD Acct: [id number] Unit: [id number] AGE: 52 Location: [facility] Re08/17/12 SEX: F Status: REG REF SPEC: [id number] PATRICIA: 08/17/[address] [facility] [address]: Vu Butts MD REQ: [id number] RECD: 08/18/12 STATUS: SOUT _ ORDERED: IMAGE ANALYSIS FINAL DIAGNOSIS Negative for Intraepithelial lesion or Malignancy A. Ectocervical/Endocervical Specimen Adequacy: Satisfactory of evaluation Transformation zone component identified Patient Information: HPV: Thin Layer Pap Test w/reflex to high risk HPV DNA testing when ASCUS Actual Specimen Date: 08/17/12 Date of Last Specimen: 01/08/09 Post Menopausal?: Y Signed (signature on file) GUILLAUME Marshall (ASCP) 08/18 1222 This Pap test was evaluated with the assistance of the HorrancePrep Test Imaging System. Due to cytologic findings at the supervisor blood donor recruiters microscope, comprehensive manual rescreening by a Asian Studies Program Chair may be required. The Pap Smear is a screening test designed to aid in the detection of premalignant and malignant conditions of the uterine cervix. It is not a diagnostic procedure and should not be used as the sole means of detecting cervical cancer. Both false- positive and false- negative reports do occur. Depending on your risk status, a Pap smear shoudl be obtained and evaluated every 1-3 years. END OF REPORT * ML=Testing performed at [facility] DEPARTMENT OF PATHOLOGY, [address] [place] [address] Rolando Hernandez M.D. Director [facility] Permit #[id number] 60 Because ethnic data is not always readily [...] 15-29 5 Kidney failure <15 (or dialysis) 61 HDL Interpretation: Undesirable: High Risk: Less than 40 MG/DL Desirable: Low Risk: Greater than 60 MG/DL 62 LDL Interpretation: Low Risk Optimal Level: LDL Less than 100 MG/DL Near or Above Optimal: LDL 100-129 MG/DL Borderline High Risk: LDL 130-159 MG/DL High Risk: LDL 160-189 MG/DL Very High Risk: LDL Greater than 189 MG/DL 63 Therapeutic target for the treatment of diabetes Mellitus patients is <7% HBA1C, and in selective patients <6.0%.Please refer to [place] [employer] Diabetic care guidelines for further information. 64 THERAPEUTIC TARGET FOR THE TREATMENT OF DIABETES MELLITUS PATIENTS IS <7% HBA1C, AND IN SELECTIVE PATIENTS <6.0%. PLEASE REFER TO [place] [employer] ASS[employer]ATION DIABETIC CARE GUIDELINES FOR FURTHER INFORMATION. 65 CHOLESTEROL INTERPRETATION: Desirable: Less than 200 MG/DL Borderline-High Risk: 200-239 MG/DL High-Risk: 240 MG/DL and over 66 HDL INTERPRETATION: Undesirable: High Risk: Less than 40 MG/DL Desirable: Low Risk: Greater than 60 MG/DL 67 LDL INTERPRETATION: Low Risk Optimal Level: LDL Less than 100 MG/DL Near or Above Optimal: LDL 100-129 MG/DL Borderline High Risk: LDL 130-159 MG/DL High Risk: LDL 160-189 MG/DL Very High Risk: LDL Greater than 189 MG/DL 68 Anion gap measurement may be of limited value in the presence of any alkalosis, especially in a combined acid base disorder. . 69 A metabolite of Naproxen, O-desmethylnaproxen, has been shown to interfere with the [place] method for measuring total bilirubin. Samples from patients who have taken Naproxen have shown spurious elevation in total bilirubin levels. 70 Because ethnic data is not always readily [...] 15-29 5 Kidney failure <15 (or dialysis) 71 Anion gap measurement may be of limited value in the presence of any alkalosis, especially in a combined acid base disorder. . 72 A metabolite of Naproxen, O-desmethylnaproxen, has been shown to interfere with the [place] method for measuring total bilirubin. Samples from patients who have taken Naproxen have shown spurious elevation in total bilirubin levels. 73 Because ethnic data is not always readily [...] 15-29 5 Kidney failure <15 (or dialysis) 74 CHOLESTEROL INTERPRETATION: Desirable: Less than 200 MG/DL Borderline-High Risk: 200-239 MG/DL High-Risk: 240 MG/DL and over 75 HDL INTERPRETATION: Undesirable: High Risk: Less than 40 MG/DL Desirable: Low Risk: Greater than 60 MG/DL 76 LDL INTERPRETATION: Low Risk Optimal Level: LDL Less than 100 MG/DL Near or Above Optimal: LDL 100-129 MG/DL Borderline High Risk: LDL 130-159 MG/DL High Risk: LDL 160-189 MG/DL Very High Risk: LDL Greater than 189 MG/DL 77 THERAPEUTIC TARGET FOR THE TREATMENT OF DIABETES MELLITUS PATIENTS IS <7% HBA1C, AND IN SELECTIVE PATIENTS <6.0%. PLEASE REFER TO [place] [employer]AB[employer] ASSOC[employer]ATION DIABETIC CARE GUIDELINES FOR FURTHER INFORMATION. 78 CHOLESTEROL INTERPRETATION: Desirable: Less than 200 MG/DL Borderline-High Risk: 200-239 MG/DL High-Risk: 240 MG/DL and over 79 HDL INTERPRETATION: Undesirable: High Risk: Less than 40 MG/DL Desirable: Low Risk: Greater than 60 MG/DL 80 LDL INTERPRETATION: Low Risk Optimal Level: LDL Less than 100 MG/DL Near or Above Optimal: LDL 100-129 MG/DL Borderline High Risk: LDL 130-159 MG/DL High Risk: LDL 160-189 MG/DL Very High Risk: LDL Greater than 189 MG/DL 81 THERAPEUTIC TARGET FOR THE TREATMENT OF DIABETES MELLITUS PATIENTS IS <7% HBA1C, AND IN SELECTIVE PATIENTS <6.0%. PLEASE REFER TO [employer]AB[employer] ASSOC[employer]ATION DIABETIC CARE GUIDELINES FOR FURTHER INFORMATION. 82 AA 08/06/10 83 Anion gap measurement may be of limited value in the presence of any alkalosis, especially in a combined acid base disorder. . 84 Because ethnic data is not always readily [...] 15-29 5 Kidney failure <15 (or dialysis) 85 Anion gap measurement may be of limited value in the presence of any alkalosis, especially in a combined acid base disorder. . 86 A metabolite of Naproxen, O-desmethylnaproxen, has been shown to interfere with the [place] method for measuring total bilirubin. Samples from patients who have taken Naproxen have shown spurious elevation in total bilirubin levels. 87 Because ethnic data is not always readily [...] 15-29 5 Kidney failure <15 (or dialysis) 88 FASTING 89 CHOLESTEROL INTERPRETATION: Desirable: Less than 200 MG/DL Borderline-High Risk: 200-239 MG/DL High-Risk: 240 MG/DL and over 90 HDL INTERPRETATION: Undesirable: High Risk: Less than 40 MG/DL Desirable: Low Risk: Greater than 60 MG/DL 91 LDL INTERPRETATION: Low Risk Optimal Level: LDL Less than 100 MG/DL Near or Above Optimal: LDL 100-129 MG/DL Borderline High Risk: LDL 130-159 MG/DL High Risk: LDL 160-189 MG/DL Very High Risk: LDL Greater than 189 MG/DL 92 Note change in reference range as of 02/29/08. The change was based on recommendations from the [place] Diabetes [employer]. 93 CHOLESTEROL INTERPRETATION: Desirable: Less than 200 MG/DL Borderline-High Risk: 200-239 MG/DL High-Risk: 240 MG/DL and over 94 HDL INTERPRETATION: Undesirable: High Risk: Less than 40 MG/DL Desirable: Low Risk: Greater than 60 MG/DL 95 LDL INTERPRETATION: Low Risk Optimal Level: LDL Less than 100 MG/DL Near or Above Optimal: LDL 100-129 MG/DL Borderline High Risk: LDL 130-159 MG/DL High Risk: LDL 160-189 MG/DL Very High Risk: LDL Greater than 189 MG/DL 96 Note change in reference range as of 02/29/08. The change was based on recommendations from the [place] [employer]. 97 CHOLESTEROL INTERPRETATION: Desirable: Less than 200 MG/DL Borderline-High Risk: 200-239 MG/DL High-Risk: 240 MG/DL and over 98 HDL INTERPRETATION: Undesirable: High Risk: Less than 40 MG/DL Desirable: Low Risk: Greater than 60 MG/DL 99 LDL INTERPRETATION: Low Risk Optimal Level: LDL Less than 100 MG/DL Near or Above Optimal: LDL 100-129 MG/DL Borderline High Risk: LDL 130-159 MG/DL High Risk: LDL 160-189 MG/DL Very High Risk: LDL Greater than 189 MG/DL 100 Note change in reference range as of 02/29/08. The change was based on recommendations from the [place] [employer]. 101 CHOLESTEROL INTERPRETATION: Desirable: Less than 200 MG/DL Borderline-High Risk: 200-239 MG/DL High-Risk: 240 MG/DL and over 102 HDL INTERPRETATION: Undesirable: High Risk: Less than 40 MG/DL Desirable: Low Risk: Greater than 60 MG/DL 103 LDL INTERPRETATION: Low Risk Optimal Level: LDL Less than 100 MG/DL Near or Above Optimal: LDL 100-129 MG/DL Borderline High Risk: LDL 130-159 MG/DL High Risk: LDL 160-189 MG/DL Very High Risk: LDL Greater than 189 MG/DL 104 A metabolite of Naproxen, O-desmethylnaproxen, has been shown to interfere with the [place]- method for measuring total bilirubin. Samples from patients who have taken Naproxen have shown spurious elevation in total bilirubin levels. 105 CHOLESTEROL INTERPRETATION: Desirable: Less than 200 MG/DL Borderline-High Risk: 200-239 MG/DL High-Risk: 240 MG/DL and over 106 HDL INTERPRETATION: Undesirable: High Risk: Less than 40 MG/DL Desirable: Low Risk: Greater than 60 MG/DL 107 LDL INTERPRETATION: Low Risk Optimal Level: LDL Less than 100 MG/DL Near or Above Optimal: LDL 100-129 MG/DL Borderline High Risk: LDL 130-159 MG/DL High Risk: LDL 160-189 MG/DL Very High Risk: LDL Greater than 189 MG/DL 108 ----- RUN DATE: 01/09/09 [facility] NMI LIVE PAGE 1 RUN TIME: 1540 Specimen Inquiry RUN USER: INTERFACE -- Name: BETH ASTUDILLO Status: REG REF Re01/08/09 Age/Sex: 48/F Unit#: [id number] Location: [facility]. : 58 -- Specimen: [id number] SOUT Spec Date: 01/08/[address]: Vu Martin Spec Type: CYTOLOGY Received: 01/09/09-899 Copies to: SOURCE ECTOCERVICAL/ENDOCERVICAL Thin Prep with Reflex HPV Test PATIENT INFORMATION ACTUAL COLLECTION DATE: 01/08/09 PATIENT HISTORY: No history given. ADEQUACY OF SPECIMEN Satisfactory for evaluation * Transformation zone component identified * DIAGNOSIS NEGATIVE FOR INTRAEPITHELIAL LESION OR MALIGNANCY * Shift in wilder suggestive of bacterial vaginosis * This Pap test was evaluated with the assistance of the ThinPrep Pap Test Imaging System. The Pap Smear is a screening test designed to aid in the detection of premalign ant and malignant conditions of the uterine cervix. It is not a diagnostic procedure a nd should not be used as the sole means of detecting cervical cancer. Both false- positiv e and false-negative reports do occur. Depending on your risk status, a Pap smear luz uld be obtained and evaluated every one to three years. Final Interpretation electronically signed by: Veronica CARBAJAL(ASCP) 01/09/09 153 9 -- -- DEPARTMENT OF PATHOLOGY, [address] [place] [address] [facility] Permit #[id number] Redd Hawk M.D. Assistant Dir meeta -- 109 ----- RUN DATE: 10/31/08 [facility] NMI LIVE PAGE 1 RUN TIME: 1603 Specimen Inquiry RUN USER: INTERFACE -- Name: BETH ASTUDILLO Status: REG REF Re10/28/08 Age/Sex: 48/F Unit#: [id number] Location: [facility] : 58 -- Specimen: [id number] SOUT Spec Date: 10/28/[address]: Joe arreola MD Spec Type: SURGICAL P Received: 10/30/08-8088 Copies to: Vu Butts MD SPECIMEN SCALP MASS HISTORY CLINICAL INFORMATION: Scalp mass - increase in size, noted many years GROSS DESCRIPTION The specimen is received in formalin labelled Beth Astudillo, Scalp Mass, and consists of an irregular, hair bearing skin ellipse measuring 1.7 x 1.0 x 0.9 cm. The mass demonstrates a central, slightly raised, non-pigmented macule measuring up to 0.9 cm. in maximal span. The surgical margin is inked. The specimen is serially sectioned along its short axis and submitted entirely in one cassette. DIAGNOSIS Skin, scalp, excision: Seborrheic keratosis. Signed Electronically by: ROLANDO HERNANDEZ MD 10/31/08 1605 -- -- DEPARTMENT OF PATHOLOGY, [address] [place] [address] [facility] Permit #[id number] Rolando Hernandez M.D. Director Mayte Mai M.D. Rail Car Operator Dir meeta -- 110 THIS TEST WAS DEVELOPED AND ITS PERFORMANCE CHARACTERISTICS DETERMINED BY [employer], [address] [place] [address]. IT HAS NOT BEEN CLEARED OR APPROVED BY THE U.[place]. FOOD AND DRUG ADMINISTRATION (FDA). THE FDA HAS DETERMINED THAT SUCH CLEARANCE OR APPROVAL IS NOT NECESSARY. TEST PERFORMED BY: [employer]. [address] [place] [phone] 111 Anion gap measurement may be of limited value in the presence of any alkalosis, especially in a combined acid base disorder. . 112 Classification: High . 113 Classification: High . 114 CALCULATED LDL APPROXIMATES THE VALUE OF A DIRECT LDL MEASUREMENT. Classification: Very High . Procedures Date CPT Code Description Status Comment 03/09/2018 99012 EKG, at Least 12 Leads Completed w/Interpretation and Report 07/11/2013 Colonoscopy Completed 2 hyperplastic polyps. Repeat 2023. 07/28/2010 88157 EKG, at Least 12 Leads Completed w/Interpretation and Report 04/23/2008 81631 Destruction,Benign Lesions, Completed Up To 14 Lesions Encounters Type Date Location Provider CPT E/M Dx Office Visit 09/10/2017 10:15a Main Office Kate Mckenzie M.D. 96452 S10.86xA Office Visit 06/24/2017 1:30p Main Office Ayan Giles [facility] [address] J06.9 Office Visit 03/07/2017 3:15p Main Office PETE SimsTiana 60834 Z00.00 D48.5 B18.2 E78.2 E53.9 E55.9 Z23 Office Visit 01/30/2016 10:15a [place] [address] L23.7 Office Visit 05/13/2015 9:00a Main Office Kristy Mame [facility] [address]51 Z00.00 K73.9 R32 E78.2 E55.9 E53.9 Office Visit 05/02/2015 2:45p [facility] [address] E78.2 Office Visit 05/31/2014 11:00a [facility] [address] 780.79 719.88 465.9 305.1 Office Visit 03/01/2014 9:00a Main Office Kristy Echeverria [facility] 29083 782.9 780.79 571.49 719.60 782.0 088.81 Office Visit 02/08/2014 2:30p Main Office Arlene Navarro M.D. 61675 959.7 V06.5 Office Visit 12/24/2013 11:00a Main Office [place] [address] 719.46 088.81 Office Visit 11/09/2013 3:45p Main Office PETE SimsTiana 15940 719.46 780.79 Office Visit 07/17/2013 11:30a Main Office Vu Butts M.D. 79601 729.82 Office Visit 02/14/2013 9:30a Main Office Vu Butts M.D. 19688 719.42 272.2 790.21 311 Office Visit 10/18/2012 11:30a Main Office Vu Butts M.D. 61134 354.0 727.41 Office Visit 09/21/2012 10:00a Main Office Vu Butts M.D. 31498 719.43 Office Visit 08/17/2012 8:45a Main Office Vu Butts M.D. 58252 V72.31 070.54 790.21 272.2 305.1 311 Office Visit 02/15/2012 9:45a Main Office Vu Butts M.D. 52116 070.54 790.21 272.2 726.32 305.1 719.47 V05.8 Office Visit 08/03/2011 10:00a Main Office Vu Butts M.D. 40561 272.2 790.21 305.1 070.54 786.59 Office Visit 01/27/2011 11:30a Main Office Vu Butts M.D. 52048 272.2 790.21 305.1 724.2 Office Visit 07/28/2010 11:00a [place] [address] V72.84 723.1 Office Visit 07/01/2010 10:45a Main Office Vu Butts M.D. 69409 724.2 272.2 305.1 724.3 790.21 070.54 Office Visit 04/16/2010 4:15p Main Office Vu Butts M.D. 17958 724.3 Office Visit 03/10/2010 11:30a Main Office Vu Butts M.D. 51805 724.2 Office Visit 02/12/2010 4:15p Main Office Ayan Giles [facility] 14564 724.3 724.2 Office Visit 12/30/2009 10:00a Main Office Vu Butts M.D. 29126 272.2 305.1 070.54 790.21 278.00 Office Visit 09/26/2009 10:15a Main Office Vu Butts M.D. 14685 272.2 780.50 278.00 305.1 070.54 Office Visit 08/28/2009 11:00a Main Office Vu Butts M.D. 13869 305.1 780.50 278.00 Office Visit 07/16/2009 10:45a Main Office Vu Butts M.D. 41843 272.2 070.54 305.1 780.50 Office Visit 01/08/2009 8:45a Main Office Vu Butts M.D. 27412 V72.31 070.54 272.0 305.1 354.0 Office Visit 10/18/2008 11:30a Main Office Vu Butts M.D. 38496 727.40 782.9 706.1 Office Visit 04/09/2008 2:15p Main Office Vu Butts M.D. 29520 355.1 702.19 Office Visit 01/15/2008 10:45a Main Office Zuly Saenz 99343 726.19 354.0 Office Visit 07/26/2007 10:00a Main Office Vu Butts M.D. 22415 627.2 305.1 Office Visit 07/26/2007 10:00a Main Office Vu Butts M.D. 24543 627.2 305.1 Office Visit 05/02/2007 10:15a Main Office Vu Butts M.D. 35489 272.0 070.54 780.50 611.79 Office Visit 04/12/2007 1:15p Main Office Vu Butts M.D. 52023 V70.0 272.0 573.3 305.1 780.50 388.30 702.19 V06.8 Office Visit 12/05/2003 4:00p Main Office Vu Butts M.D. 37414 486 305.1 Office Visit 11/29/2003 3:15p Main Office Vu Butts M.D. 25919 486 305.1 Plan of Care 03/09/2018 - Ayan Giles, LOG BUNCHER-CZ01.818 Encounter for other preprocedural examinationComments:labs, EKG and CXR reviewed, smoking cessation encouraged. Medically stable for planned procedure, slightly higher risk for pulmonary or vascular/clotting complications due to smoking status however this should not prevent her from having her surgery
[2018-03-23] MEDS ORDERED: Ondansetron INJ* 2 MG/ML VIAL ONE ×2 (11:40→17:30)
[2018-03-23] MEDS ORDERED: Lidocaine 2% PF * 5 ML VIAL ONE (11:40)
[2018-03-23] MEDS ORDERED: fentaNYL* 50 MCG/ML 2 ML VIAL (100 MCG VIAL) ONE ×3 (11:40→16:52)
[2018-03-23] MEDS ORDERED: Dexamethasone IV* 4 MG/ML 1 ML (4 MG) ONE (11:40)
[2018-03-23] MEDS ORDERED: ROPIVACAINE 5 MG/ML 30 ML BTL (0.5%) ONE (11:40)
[2018-03-23] MEDS ORDERED: KETAMINE HCL* 50 MG/ML 10 ML VIAL ONE (11:40)
[2018-03-23] MEDS ORDERED: Propofol* 10 MG/ML 20 ML BTL IV PUSH ONE ×2 (11:40→14:29)
[2018-03-23] MEDS ORDERED: Midazolam* 1 MG/ML 5 ML VIAL (5 MG) ONE (11:41)
[2018-03-23] MEDS ORDERED: Famotidine IV* 10 MG/ML 2 ML (20 mg) ONE (11:42)
[2018-03-23] MEDS ORDERED: Gabapentin CAP(*) 300 MG ONE (11:42)
[2018-03-23] MEDS ORDERED: celeCOXIB CAP* 100 MG ONE (11:42)
[2018-03-23] MEDS ORDERED: Acetaminophen TAB* 325 MG ONE (11:42)
[2018-03-23] MEDS ORDERED: ceFAZolin 2 GM in NS PREMIX(*) 2 GM/100 ML BAG IVPB ONE (11:42)
[2018-03-23] MEDS ORDERED: Bupivacaine 0.25% SDV PF* 10 ML VIAL INJ ONE (13:36)
[2018-03-23] MEDS ORDERED: Cisatracurium* 2 MG/ML MDV 5 ML ONE (13:47)
[2018-03-23] MEDS ORDERED: fentaNYL* 50 MCG/ML 5 ML VIAL (250 MCG VIAL) ONE (14:14)
[2018-03-23] MEDS ORDERED: Naloxone* 0.4 MG/ML 1 ML VIAL IV PRN (15:01)
[2018-03-23] MEDS ORDERED: Ondansetron INJ* 2 MG/ML VIAL IV PRN ×2 (15:01→15:52)
[2018-03-23] MEDS ORDERED: HYDROmorphone INJ1* 1 MG/ML SYRINGE ONE ×2 (15:49→16:01)
[2018-03-23] MEDS ORDERED: Magnesium Hydroxide LIQ* 30 ML UDC PO PRN (15:52)
[2018-03-23] MEDS ORDERED: Bisacodyl SUPP* 10 MG SUPP PR PRN (15:52)
[2018-03-23] MEDS ORDERED: diPHENhydraMINE IV* 50 MG/ML 1 ml VIAL (BENADRYL) IV PRN (15:52)
[2018-03-23] MEDS ORDERED: Cyclobenzaprine TAB* 10 MG PO PRN (15:52)
[2018-03-23] MEDS ORDERED: Morphine INJ* 2 MG/ML 1 ML SYRINGE (TWO MG - NEW SYRINGE VERSION) IV PRN (15:52)
[2018-03-23] MEDS: fentaNYL* 50 MCG/ML 2 ML VIAL (100 MCG VIAL) IV PRN ×4 (16:14→17:26)
[2018-03-23] MEDS: HYDROmorphone INJ1* 1 MG/ML SYRINGE IV PRN ×2 (16:17→16:56)
[2018-03-23] MEDS ORDERED: oxyCODONE/Acetamin 5/325 MG* TAB ONE (16:52)
[2018-03-23] MEDS: oxyCODONE/Acetamin 5/325 MG* TAB PO PRN ×3 (16:53→22:14)
[2018-03-23] MEDS ORDERED: Warfarin TAB(*) 6 MG PO ONE (17:00)
--- NOTE | 2018-03-23 17:52 | RAD ---
Indication: Right-sided knee replacement. 2 views of the right knee demonstrates right-sided bipolar knee arthroplasty in satisfactory position. No loosening is noted. IMPRESSION: Right knee replacement in satisfactory position.
[2018-03-23] MEDS: Acetaminophen TAB* 325 MG PO SCH (20:04)
[2018-03-23] MEDS: Docusate CAP* 100 MG PO SCH (20:17)
[2018-03-23] MEDS: Atorvastatin* 20 MG TAB PO SCH (20:18)
[2018-03-23] MEDS: Magnesium Hydroxide LIQ* 30 ML UDC PO SCH (20:18)
[2018-03-23] MEDS: ceFAZolin 1 GM in Dextrose (*) 1 GM/50 ML BAG IVPB SCH (22:10)
[2018-03-24] MEDS: oxyCODONE TAB* 5 MG TAB PO PRN ×5 (00:31→20:26)
[2018-03-24] MEDS: oxyCODONE/Acetamin 5/325 MG* TAB PO PRN ×5 (02:49→23:41)
[2018-03-24] MEDS: Acetaminophen TAB* 325 MG PO SCH ×3 (04:23→20:44)
[2018-03-24 05:28] LABS: Hematocrit 37 % (35-47); Hemoglobin 12.5 g/dl (12.0-16.0); Mean Platelet Volume 7.8 um3 (7.4-10.4); Platelet Count 181 10^3/ul (150-450)
[2018-03-24 05:32] LABS: INR 0.9 (0.77-1.02)
[2018-03-24 05:47] LABS: EGFR Non-African American 84.6 (>60)
[2018-03-24] MEDS: ceFAZolin 1 GM in Dextrose (*) 1 GM/50 ML BAG IVPB SCH ×2 (06:10→13:52)
[2018-03-24] MEDS: Docusate CAP* 100 MG PO SCH ×2 (08:33→20:45)
[2018-03-24] MEDS: Magnesium Hydroxide LIQ* 30 ML UDC PO SCH ×2 (08:33→20:53)
[2018-03-24] MEDS: Sertraline* 100 MG TAB PO SCH (08:33)
[2018-03-24] MEDS: Enoxaparin(*) 40 MG/0.4 ML SYR SUBCUT SCH (12:46)
--- NOTE | 2018-03-24 13:01 | PN ---
Progress Note - Progress Note Date of Service: 03/24/18 SOAP: Subjective: [Pt was seen this morning lying back in the chair. States that she feels a "little high" from the narcotic pain medication. Feels that the pain is worse after PT but is manageable. States that she is quite tired and would like to sleep. Denies any SOB, chest pain, nausea or vomiting.] Objective: [General: A&Ox3, NAD MSK, RLE: Dressing is c/d/i without surrounding erythema. Calf is tender to plapation just below the dressing. contralateral side is non tender. NVI distally, 2+ DP and PT pulse with less than 2second cap refill. ] Vital Signs Temp 99.0 F 03/24/18 02:59 Pulse 63 03/24/18 02:59 Resp 15 03/24/18 12:46 BP 124/59 03/24/18 02:59 Pulse Ox 97 03/24/18 02:59 Intake & Output 03/23/18 03/24/18 03/24/18 18:59 06:59 18:59 Intake Total 1700 2870 240 Output Total 150 1775 400 Balance 1550 1095 -160 Weight 163 lb 6.4 oz Intake: IV Fluids 1700 1030 ABX - CEFAZOLIN 50 LR 980 lr 1700 Oral 1840 240 Output: Urine 400 Alatorre 150 1775 Assessment: [POD 1 RTKA ] Plan: [- PT/OT - Utilize pain medication with more caution - Finish post op abx - INR of 0.90 - Lovenox bridge with 6 mg of Coumadin tonight. ]
--- NOTE | 2018-03-24 13:59 | RAD ---
HISTORY: S/P RTKA with new onset calf pain COMPARISONS: None relevant TECHNIQUE: Multiple transverse and longitudinal ultrasound images were obtained of the right lower extremity from the level of the common femoral vein inferiorly through to the infrapopliteal veins using grayscale, color Doppler, and spectral Doppler imaging with and without compression and with augmentation. Comparison images were obtained of the contralateral common femoral vein. FINDINGS: VEINS: The venous system of the right lower extremity is compressible throughout its course, with normal flow on color Doppler imaging and normal response to augmentation on spectral Doppler imaging. SOFT TISSUES: Unremarkable. OTHER FINDINGS: None. IMPRESSION: NO RIGHT LOWER EXTREMITY DEEP VEIN THROMBOSIS
[2018-03-24] MEDS ORDERED: Warfarin TAB(*) 6 MG PO SCH (17:00)
[2018-03-24] MEDS: Atorvastatin* 20 MG TAB PO SCH (18:48)
--- NOTE | 2018-03-25 03:47 | OP ---
OPERATIVE NOTE: DATE OF OPERATION: 03/23/18 DATE OF : 58 ATTENDING SURGEON: Joslyn Burnett MD MITTEN STITCHER: TU Max Ms. did help throughout the procedure with preparation of the leg, wound retraction, manipulation of the knee, and wound closure. ANESTHESIOLOGIST: Dr. Molina. ANESTHESIA: General. PRE-OP DIAGNOSES: Severe end-stage degenerative osteoarthritis of the right knee joint with valgus deformity. POST-OP DIAGNOSIS: Severe end-stage degenerative osteoarthritis of the right knee joint with valgus deformity. OPERATIVE PROCEDURE: Right total knee arthroplasty. TOURNIQUET TIME: 48 minutes. COMPLICATIONS: None. ESTIMATED BLOOD LOSS: 200 cc. SPECIMENS: Bone and cartilage sent to pathology. HARDWARE USED: This is cemented [employer] total knee arthroplasty hardware. Two packages of Simplex bone cement. For the femur, a right size 6 narrow Oxinium Legion posterior stabilized femoral component. For the tibia, a size 5 right tibial base plate Susan II. For the insert, a 9 mm posterior stabilized articular insert size 5/6 and for the patella, 32 mm 3-peg all poly patella with 7.5 thickness. BRIEF HISTORY/INDICATION: Ms. Astudillo is a 57-year-old female with years of increasingly severe right knee pain and valgus deformity. She failed conservative treatment with antiinflammatories, pain medications, physical therapy, and injections. Her valgus deformity started to give her feelings of instability. Due to continued pain and decreased quality of life, she elected to undergo right total knee arthroplasty. Informed consent was obtained from the patient. She understood the risks of surgery included, but were not limited to, bleeding, infection, damage to nearby structures, continued pain, need for further surgery, intraoperative fracture, nerve palsy, hardware failure or loosening, knee stiffness, loss of motion, stroke, heart attack, blood clot, or . She wished to proceed. INTRAOPERATIVE FINDINGS: Intraoperatively, the patient was found to have a 12- degree preop valgus deformity, which was a stiff contracture. She had significant tightening of the lateral ligaments and some laxity of the medial ligaments. She had tricompartmental loss of cartilage, worst in the lateral and patellofemoral compartments. She had some lateral femoral condylar hypoplasia. DESCRIPTION OF PROCEDURE: Ms. Astudillo was identified in the preanesthesia unit. Her right lower extremity was marked as the correct operative side. Informed consent was signed and placed in the chart. The patient was taken to the operating room and placed under general anesthesia. A Alatorre catheter was placed. Tourniquet was placed on the right thigh. Right lower extremity was prepped and draped in the usual sterile fashion. Preop time-out was made to correctly identify the patient's side and site. Appropriate perioperative antibiotics were given within 1 hour of incision. Tourniquet was inflated and total tourniquet time for this procedure was 48 minutes. A midline incision was made with a 10-blade and carried down to the extensor mechanism. A new 10- blade was made to make a standard medial parapatellar arthrotomy. Patella was subluxed laterally. Electrocautery was used to subperiosteally elevate soft tissue off the superomedial tibia to the mid sagittal plane. The knee was flexed up. The anterior horn of the lateral meniscus and ACL were sharply released. A drill was used to enter the distal femur. Intramedullary distal femoral cutting guide was pinned on the distal femur. Lateral femoral condylar hypoplasia was noted and accounted for. Distal femoral cut was made with an oscillating saw. External rotation guide was pinned on the distal femur and the distal femur was sized to a size 6. Size 6 multi-cutting jig was pinned on the distal femur. Oscillating saw was used to make the 4 chamfer cuts. Next, the PCL was completely released. Tibia was subluxed anteriorly. Extramedullary tibial cutting guide was pinned on the proximal tibia. Oscillating saw was used to make the proximal tibial cut and the bone was carefully removed. The knee was brought out into full extension. There was significant lateral tightness. Electrocautery was used to release any posterolateral capsule. Any lateral osteophytes were carefully removed. A 15-blade was used to perform conservative pie crust due to the lateral ligaments. The spacer block was placed with the knee in full extension. Medial and lateral ligamentous balancing was satisfactory. Medial ligament had some slight laxity, but was constant. The knee had good flexion and extension gap balancing. The knee was flexed up. A lamina wrapper sizer was placed both medially and laterally. Any remaining meniscus was carefully removed using electrocautery. Curved osteotome was used to remove any posterior osteophytes. Tibial tray and drop dale were placed to confirm a satisfactory tibial cut. A size 6 narrow right femoral trial was impacted on to the distal femur and it had good fit. The box for the posterior stabilized implant was prepared using a reamer and box cut osteotome. Size 5 tibial tray trial with a 9 mm insert trial was placed and the knee was taken through a range of motion. The knee had full extension to 130 degrees of flexion. There was satisfactory patellofemoral tracking. The patella was everted. A 7 mm of patellar bone and cartilage were carefully removed using an oscillating saw. Patella was sized to a size 32. A 32 guide was used to drill the 3 holes for the patella trial. A 32 trial patella with 7.5 thickness was placed and the knee was taken through a range of motion. There was satisfactory patellofemoral tracking. All trials were carefully removed. Tibia was subluxed anteriorly and sized to a size 5. Proximal tibia was prepared using a size 5 keel punch. All bony cut surfaces were copiously irrigated with sterile saline and dried. Final implants were cemented into place starting with the tibia, followed by the femur , and lastly the patella. A 9 mm insert trial was placed and the knee was placed in full extension. Tourniquet was turned down at 48 minutes. Electrocautery was used to obtain meticulous hemostasis. The knee was copiously irrigated with sterile saline. Once the cement had fully cured, the insert trial was removed. Any excess cement was removed from around the capsule and hardware. Final insert chosen was a 9 mm posterior stabilized articular insert size 5/6. This was locked into position on the tibial tray. The stability of the insert was checked and rechecked and noted to be stable. The extensor mechanism was closed using interrupted #1 Vicryls. The rest of the incision was closed in a layered fashion using 0 and 2-0 Vicryls. Skin was closed using running 3-0 nylon suture. Sterile Xeroform, 4x4s, and Webril were used to cover the incision. Fabián wrap and cold pack were placed over this. The patient's anesthesia was reversed without difficulty. She was taken to the PACU in stable condition. Intended weightbearing is weightbearing as tolerated. Intended DVT prophylaxis will be Coumadin with a Lovenox bridge. [id number]/[facility] #: [id number] [facility] [place] [facility]
[2018-03-25] MEDS: oxyCODONE/Acetamin 5/325 MG* TAB PO PRN ×2 (03:59→12:03)
[2018-03-25] MEDS: Acetaminophen TAB* 325 MG PO SCH ×2 (04:00→12:15)
[2018-03-25 06:51] LABS: Hematocrit 33 % (35-47); Hemoglobin 11.4 g/dl (12.0-16.0); Mean Platelet Volume 8.5 um3 (7.4-10.4); Platelet Count 153 10^3/ul (150-450)
[2018-03-25 06:56] LABS: INR 1.56 (0.77-1.02)
[2018-03-25] MEDS: oxyCODONE TAB* 5 MG TAB PO PRN (06:58)
[2018-03-25] MEDS: Sertraline* 100 MG TAB PO SCH (07:57)
[2018-03-25] MEDS: Docusate CAP* 100 MG PO SCH (07:58)
[2018-03-25] MEDS: Magnesium Hydroxide LIQ* 30 ML UDC PO SCH (07:58)
--- NOTE | 2018-03-25 09:33 | PN ---
Progress Note - Progress Note Date of Service: 03/25/18 SOAP: Subjective: [Pt was seen this morning lying in bed. Pt states that pain is a 7/10. She states that she has a hard time dealing with pain in general. She states she has been sleeping and trying to get some rest. Denies any chest pain, SOB, nausea or vomiting. Seen again in afternoon. Pain is well managed. Pt is ready to go home today ] Objective: [General: A&Ox3, NAD MSK, RLE: Dressing changed today. Incision is c/d/i without purulence or drainage. 4x4s and KRISH placed on the pts incision. +df/pf. Calf has some pain to palpation, similar to POD 1 but improving slightly. NVI and a 2+ DP pulse. ] Vital Signs Temp 97.9 F 03/25/18 11:57 Pulse 73 03/25/18 11:57 Resp 16 03/25/18 12:03 BP 145/68 03/25/18 11:57 Pulse Ox 97 03/25/18 11:57 Intake & Output 03/24/18 03/25/18 03/25/18 18:59 06:59 18:59 Intake Total 2001 1180 Output Total 1550 1850 1225 Balance 452 670 -1225 Intake: IV Fluids 983 LR 983 IVPB 59 ABX - CEFAZOLIN 59 Oral 960 1180 Output: Urine 1550 1850 1225 Other: Date of Last Bowel 03/25/2018 Movement # Bowel Movements 1 Estimated Stool Amount Medium Assessment: [POD 2 - RTKA] Plan: [Continue with current pain medication DC home today Warfarin dosing 8mg tonight 6mg tuesday recheck tuesday ]
[2018-03-25 12:03] VITALS: BP 145/68
[2018-03-25] MEDS: Enoxaparin(*) 40 MG/0.4 ML SYR SUBCUT SCH (12:04)
--- NOTE | 2018-03-28 03:11 | DS ---
DISCHARGE SUMMARY: DATE OF ADMISSION: 03/23/18 DATE OF DISCHARGE: PROVIDER: Joslyn Burnett MD. CONSULTATIONS: PT and OT. HISTORY OF PRESENT ILLNESS: Ms. Astudillo is a 57-year-old female with end-stage osteoarthritis of the r ight knee. She has failed conservative treatment and elected to proceed with right total knee arthro plasty, which was performed on 03/23/18. HOSPITAL COURSE: The patient was admitted to [facility] on 03/23/18 and underwent a right total knee arthroplasty with no complications. The patient recovered briefly in the postanesthesia care unit and was transferred to the short- stay surgical unit in stable condition. On postop day #1 , the patient's H and H was 12.5 and 37 with an INR of 0.90 after 6 mg of Coumadin the night before. The dressing was clean, dry, and intact. Her right lower extremity was neurovascularly intact. She could demonstrate dorsiflexion and plantar flexion with good strength. The patient was able to get o ut of bed with physical therapy. Pain was well controlled with oral pain medications. On postop day #2, her catheter was discontinued. The patient was able to void without difficulty. Incision was f ound to be benign, with minimal drainage, no erythema or warmth. The patient's H and H was 11.1, 33. INR was 1.56 after 6 mg of Coumadin the night before. The patient's pain was well controlled and f ound to be stable for discharge. Throughout the hospital course, the vital signs remained stable and the patient was afebrile. DISCHARGE CONDITION: Good. DISCHARGE MEDICATIONS: 1. Percocet 5/325. 2. Warfarin 2 mg. 3. Colace 100 mg. HOME MEDICATIONS: 1. Sertraline 50 mg. 2. Simvastatin 40 mg. DISCHARGE INSTRUCTIONS: 1. Weightbearing as tolerated. 2. Wound care, okay to shower. On postop day #3, no bathing, swimming or submerging the wound. Use gentle soap, pat dry. Cover with gauze, Fabián wrap, or tape. Call orthopedic office for increased akosua inage, redness, or increased pain or fever. Go to the ER with shortness of breath or chest pain. 3. Diet: Regular diet. Increase fluids and fiber to prevent constipation. Continue the use of stoo l softeners, call the office if no bowel motion within 48 hours. 2. Continue physical therapy and occupational therapy, exercises were shown. 3. Visiting home nursing to do wound checks and draw blood work for INR on Tuesday to . 4. Coumadin dosing. Please note that you have been given 2 mg tablets. You will be provided with d ose instructions on Mondays and . If you do not receive dosing instructions on dosing, zion dodge call our office right away. Please vito dosing instructions on your calendar as they are provided to you. Dosin mg tonight, 6 mg Tuesday, recheck on Tuesday. 5. Pain control with Percocet 5/325 1 to 2 tabs by mouth every 4 to 6 hours as needed for pain, maxi mum daily dose of Tylenol 4000 mg from all sources. 6. Antibiotics required prior to any dental work. 7. Follow up with Dr. Burnett within 10 to 14 days, call for an appointment. 8. Please call our office for any questions or concerns [phone]. TU BRUCE [id number]/[facility] #: [id number]
== END 2018-03-25 13:50 | disposition home or self-care (01) | DRG 302 ==
LOC: AA 11:28 → SSU 18:06
PROVIDERS: ADMIT Orthopaedic Surgery Adult Reconstructive Orthopaedic Surgery; ATTEND Orthopaedic Surgery Adult Reconstructive Orthopaedic Surgery
PROC: 0SRC069 Replacement of Right Knee Joint with Oxidized Zirconium on Polyethylene Synthetic Substitute, Cemented, Open Approach (ICD-10-PCS; principal; 2018-03-23 14:00)
DX: M17.11 Unilateral primary osteoarthritis, right knee (principal); M25.761 Osteophyte, right knee; E78.00 Pure hypercholesterolemia, unspecified; M21.061 Valgus deformity, not elsewhere classified, right knee; B19.20 Unspecified viral hepatitis C without hepatic coma; F17.210 Nicotine dependence, cigarettes, uncomplicated; F12.90 Cannabis use, unspecified, uncomplicated; Z79.899 Other long term (current) drug therapy; Z88.5 Allergy status to narcotic agent; Z83.3 Family history of diabetes mellitus; Z82.49 Family history of ischemic heart disease and other diseases of the circulatory system; Z80.3 Family history of malignant neoplasm of breast
CPT/HCPCS: 36415; 80048; 85014; 85018; 85049; 85610; 90686; A9270-GY; C1776; J0690; J1100; J1170; J1650; J2250; J2405; J2704; J2795; J3010; J3490

== ENCOUNTER 2018-03-27 13:18 | Emergency (ER) | payer OTHER ==
[2018-03-27] MEDS ORDERED: oxyCODONE/Acetamin 5/325 MG* TAB PO ONE (14:53)
--- NOTE | 2018-03-27 15:40 | RAD ---
HISTORY: Injury w/ stepping - medial pain, bruising COMPARISONS: None VIEWS: 6 , Frontal, lateral, and oblique views of the right foot and right ankle FINDINGS: BONE DENSITY: Normal. BONES: There is no displaced fracture. JOINTS: There is osteoarthritis of the first MTP joint. There is mild osteoarthritis of the tibiotalar and fibulotalar articulations. ALIGNMENT: There is no dislocation. SOFT TISSUES: There is circumferential soft tissue swelling of the ankle. OTHER FINDINGS: None. IMPRESSION: SOFT TISSUE SWELLING. OSTEOARTHRITIS. NO ACUTE OSSEOUS INJURY. IF SYMPTOMS PERSIST, RECOMMEND REPEAT IMAGING.
--- NOTE | 2018-03-27 16:07 | RAD ---
HISTORY: + Purvi's, s/p TKR COMPARISONS: March 24, 2018 TECHNIQUE: Multiple transverse and longitudinal ultrasound images were obtained of the right lower extremity from the level of the common femoral vein inferiorly through to the infrapopliteal veins using grayscale, color Doppler, and spectral Doppler imaging with and without compression and with augmentation. Comparison images were obtained of the contralateral common femoral vein. FINDINGS: VEINS: The venous system of the right lower extremity is compressible throughout its course, with normal flow on color Doppler imaging and normal response to augmentation on spectral Doppler imaging. SOFT TISSUES: Unremarkable. OTHER FINDINGS: None. IMPRESSION: NO RIGHT LOWER EXTREMITY DEEP VEIN THROMBOSIS
--- NOTE | 2018-03-27 16:27 | ED ---
Lower Extremity - HPI Summary HPI Summary: Patient presents with right foot and ankle pain since injury this past Tuesday. She reports she was 2 days postop right total knee replacement w/ Dr. Burnett and she was in a physical therapy class when she used her right leg to step up on the stairs. The instructor told her after the fact, she was supposed to step with her left leg and then bring her RT foot up to the step. When lifting her right leg she went to place her foot down on the step and reports it dropped onto the step in an abrupt and harsh fashion and she had acute pain in her foot and ankle. She's been able to ambulate since however it is painful. She has also developed swelling and bruising about the dorsum of the foot and ankle since. She is not taking NSAIDs as she is on Coumadin for DVT prophylaxis. Last INR was drawn today and she is not aware of the results however was told it was "a little high". Was not told to change the dose of her Coumadin. Her right knee is warm and swollen as well however this has been the case since surgery and she denies any changes in pain, ROM or symptoms here - no drainage or streaking. Has been continuing PT. Additionally she denies fevers, chills, nausea, vomiting. She is scheduled for postop follow-up with Dr. Burnett on 04/03. Has been taking oxycodone at home for pain but did not take any today. She is also not currently taking antibiotics although she did have some around the time of her surgery. No other issues to report. - History of Current Complaint Chief Complaint: EDExtremityLower Stated Complaint: RT KNEE PAIN Time Seen by Provider: 03/27/18 14:04 Hx Obtained From: Patient Hx Last Menstrual Period: 3 yrs ago Pain Intensity: 10 - Allergies/Home Medications Allergies/Adverse Reactions: Allergies Allergy/AdvReac Type Severity Reaction Status Date / Time morphine Allergy Intermediate Rash Verified 03/27/18 13:24 Home Medications: Home Medications Acetaminophen TAB* [Tylenol TAB*] 650 mg PO Q6H PRN 03/27/18 [History Confirmed 03/27/18] PMH/Surg Hx/FS Hx/Imm Hx Endocrine/Hematology History: Denies: Hx Anticoagulant Therapy, Hx Diabetes, Hx Thyroid Disease Cardiovascular History: Reports: Hx Hypercholesterolemia Denies: Hx Hypertension, Hx Pacemaker/ICD, Hx Peripheral Vascular Disease, Other Cardiovascular Problems/Disorders Respiratory History: Denies: Hx Chronic Obstructive Pulmonary Disease (COPD) GI History: Denies: Other GI Disorders History: Denies: Hx Dialysis, Hx Renal Disease Musculoskeletal History: Reports: Hx Arthritis - knees, Hx Bursitis - left shoulder, Hx Tendonitis Denies: Hx Osteoporosis Sensory History: Reports: Hx Contacts or Glasses - glasses Denies: Hx Cataracts, Hx Glaucoma, Hx Hearing Aid Opthamlomology History: Reports: Hx Contacts or Glasses - glasses Denies: Hx Cataracts, Hx Glaucoma Neurological History: Reports: Hx Headaches Denies: Hx Dementia, Hx Seizures, Hx Transient Ischemic Attacks (TIA) Psychiatric History: Denies: Hx Anxiety, Hx Depression, Hx Panic Disorder - Surgical History Surgery Procedure, Year, and Place: CSP- FUSION-2010;. APPENDECTOMY;. CYST- BREAST (Lt);. TUBAL LIGATION Hx Anesthesia Reactions: No - Immunization History Date of Tetanus Vaccine: 2015 Infectious Disease History: No Infectious Disease History: Reports: Hx Hepatitis - 12 yrs ago hep c Denies: Traveled Outside the [place] in Last 30 Days - Family History Known Family History: Positive: Hypertension - Social History Alcohol Use: 6 PACK DURING A WEEK Alcohol Amount: 2x/week Substance Use Type: Reports: Marijuana Substance Use Comment - Amount & Last Used: OCCASIONALLY Smoking Status (MU): Heavy Every Day Tobacco Smoker Type: Cigarettes Amount Used/How Often: pack a day for 40 yrs Physical Exam Vital Signs On Initial Exam: Initial Vitals Temp Pulse Resp BP Pulse Ox 97.9 F 88 15 145/69 98 03/27/18 13:20 03/27/18 13:20 03/27/18 13:20 03/27/18 13:20 03/27/18 13:20 Diagnostics - Vital Signs Vital Signs Temp Pulse Resp BP Pulse Ox 03/27/18 13:20 97.9 F 88 15 145/69 98 - Laboratory Lab Statement: Any lab studies that have been ordered have been reviewed, and results considered in the medical decision making process. Discharge - Sign-Out/Discharge Documenting (check all that apply): Patient Departure - Discharge Plan Condition: Stable Disposition: HOME Patient Education Materials: Ankle Sprain (ED), Foot Sprain (ED) Referrals: Joslyn Burnett MD [Medical Doctor] - Additional Instructions: REST, ICE, ELEVATE and limit weight bearing via your walker until seen by orthopedics this week. Call tomorrow to schedule follow-up with Dr. Burnett. Continue pain medication as directed. *If you develop numbness, tingling, weakness, swelling or skin discoloration, elevate leg for 20 minutes. If symptoms persist, return to ED - Billing Disposition and Condition Condition: STABLE Disposition: Home
[2018-03-27 17:54] VITALS: BP 150/73
== END 2018-03-27 17:52 | disposition home or self-care (01) ==
LOC: ED 13:18
DX: M79.671 Pain in right foot (principal); M25.571 Pain in right ankle and joints of right foot; E78.00 Pure hypercholesterolemia, unspecified; F17.210 Nicotine dependence, cigarettes, uncomplicated
CPT/HCPCS: 99281; A9270-GY

== ENCOUNTER 2019-01-26 08:20 | Emergency (ER) | payer OTHER ==
[2019-01-26] MEDS ORDERED: Cetirizine* 10 MG TAB PO ONE (08:40)
[2019-01-26] MEDS ORDERED: Ciproflox/Dexameth OTIC.SUSP* 7.5 ML BTL BOTH EARS ONE (08:40)
--- NOTE | 2019-01-26 08:42 | ED ---
Throat Pain/Nasal Congestion - HPI Summary HPI Summary: 58 year old female presents with bilateral ear pain for the past 4 days. She states that she's had decreased in hearing. She states when she pushes on her ear she has extreme pain. She states the left is worst than right. She tried peroxide and alcohol in her ears yesterday which helped with the pain. She admits to sinus congestion postnasal drip and occasional cough. She has no medical conditions. She denies any fevers. No chest pain shortness breath. Does admit to occasional headache. She states she has a history of these ear infection. She states has been using a hot tub. - History of Current Complaint Chief Complaint: EDEarPain Time Seen by Provider: 01/26/19 08:28 - Allergies/Home Medications Allergies/Adverse Reactions: Allergies Allergy/AdvReac Type Severity Reaction Status Date / Time morphine Allergy Intermediate Rash Verified 01/26/19 08:23 PMH/Surg Hx/FS Hx/Imm Hx Endocrine/Hematology History: Denies: Hx Anticoagulant Therapy, Hx Diabetes, Hx Thyroid Disease Cardiovascular History: Reports: Hx Hypercholesterolemia Denies: Hx Hypertension, Hx Pacemaker/ICD, Hx Peripheral Vascular Disease, Other Cardiovascular Problems/Disorders Respiratory History: Denies: Hx Chronic Obstructive Pulmonary Disease (COPD) GI History: Denies: Other GI Disorders History: Denies: Hx Dialysis, Hx Renal Disease Musculoskeletal History: Reports: Hx Arthritis - knees, Hx Bursitis - left shoulder, Hx Tendonitis Denies: Hx Osteoporosis Sensory History: Reports: Hx Contacts or Glasses - glasses Denies: Hx Cataracts, Hx Glaucoma, Hx Hearing Aid Opthamlomology History: Reports: Hx Contacts or Glasses - glasses Denies: Hx Cataracts, Hx Glaucoma Neurological History: Reports: Hx Headaches Denies: Hx Dementia, Hx Seizures, Hx Transient Ischemic Attacks (TIA) Psychiatric History: Denies: Hx Anxiety, Hx Depression, Hx Panic Disorder - Surgical History Surgery Procedure, Year, and Place: CSP- FUSION-2010;. APPENDECTOMY;. CYST- BREAST (Lt);. TUBAL LIGATION Hx Anesthesia Reactions: No - Immunization History Date of Tetanus Vaccine: UTD 2015 Infectious Disease History: No Infectious Disease History: Reports: Hx Hepatitis - 12 yrs ago hep c Denies: Traveled Outside the [place] in Last 30 Days - Family History Known Family History: Positive: Hypertension - Social History Alcohol Use: 6 PACK DURING A WEEK Alcohol Amount: 2x/week Substance Use Type: Reports: Marijuana Substance Use Comment - Amount & Last Used: OCCASIONALLY Hx Tobacco Use: Yes Smoking Status (MU): Heavy Every Day Tobacco Smoker Type: Cigarettes Amount Used/How Often: pack a day for 40 yrs Review of Systems Negative: Fever Positive: Ear Ache, Nasal Discharge Negative: Chest Pain Positive: Cough. Negative: Shortness Of Breath All Other Systems Reviewed And Are Negative: Yes Physical Exam Triage Information Reviewed: Yes Vital Signs On Initial Exam: Initial Vitals Temp Pulse Resp BP Pulse Ox 98.6 F 68 16 159/78 95 01/26/19 08:23 01/26/19 08:23 01/26/19 08:23 01/26/19 08:23 01/26/19 08:23 Vital Signs Reviewed: Yes Appearance: Positive: Well-Appearing Skin: Positive: Warm, Dry Head/Face: Positive: Normal Head/Face Inspection Eyes: Positive: Normal, EOMI, ANGEL, Conjunctiva Clear ENT: Positive: Pharynx normal, TMs normal, Other - canal edematous and erythematous bilateral left>right, pain with manipulation of tragus Respiratory/Lung Sounds: Positive: Clear to Auscultation, Breath Sounds Present Cardiovascular: Positive: Normal, RRR Abdomen Description: Positive: Nontender, Soft Bowel Sounds: Positive: Present Musculoskeletal: Positive: Normal Neurological: Positive: Normal Psychiatric: Positive: Normal Diagnostics - Vital Signs Vital Signs Temp Pulse Resp BP Pulse Ox 01/26/19 08:23 98.6 F 68 16 159/78 95 - Laboratory Lab Statement: Any lab studies that have been ordered have been reviewed, and results considered in the medical decision making process. EENT Course/Dx - Course Course Of Treatment: 58 year old female presents with bilateral ear pain for the past 4 days. She states that she's had decreased in hearing. She states when she pushes on her ear she has extreme pain. She states the left is worst than right. She tried peroxide and alcohol in her ears yesterday which helped with the pain. She admits to sinus congestion postnasal drip and occasional cough. She has no medical conditions. She denies any fevers. No chest pain shortness breath. Does admit to occasional headache. She states she has a history of these ear infection. She states has been using a hot tub. On exam TMs are normal with some fluid behind them. Ear canals bilaterally are edematous and erythematous with left worst than right. Has pain with manipulation of tragus. Nasal congestion noted. Pharynx normal. Lungs clear to auscultation. Will treat otitis externa with Ciprodex. Told to take zytrec and continue saline for nasal congestion. Told to follow-up with primary if no improvement. Patient understands agrees with plan. - Differential Diagnoses Differential Diagnoses: Otitis Externa, Otitis Media, Sinusitis - Diagnoses Provider Diagnoses: Otitis externa, Rhinosinusitis Discharge - Sign-Out/Discharge Documenting (check all that apply): Patient Departure Patient Received Moderate/Deep Sedation with Procedure: No - Discharge Plan Condition: Good Disposition: HOME Patient Education Materials: Otitis Externa (ED) Forms: *Work Release Referrals: Vu Butts MD [Primary Care Provider] - Additional Instructions: Use 4 drops twice a day for 7 days in bilateral ears Take zytrec daily can use saline rinses in nose for nasal congestion Take Tylenol or ibuprofen for pain every 6 hours as needed Follow up with primary in a week to make sure resolving Return to ED if develop any new or worsening symptoms - Billing Disposition and Condition Condition: GOOD Disposition: Home - Attestation Statements Provider Attestation: I was available for consult. This patient was seen by the ADALBERTO. The patient was not presented to, seen by, or examined by me. -Renee
[2019-01-26 09:13] VITALS: BP 0/0
== END 2019-01-26 09:10 | disposition home or self-care (01) ==
LOC: ED 08:20
DX: H60.93 Unspecified otitis externa, bilateral (principal); J32.9 Chronic sinusitis, unspecified; Z88.5 Allergy status to narcotic agent; E78.00 Pure hypercholesterolemia, unspecified; F17.210 Nicotine dependence, cigarettes, uncomplicated
CPT/HCPCS: 99282; A9270-GY

== ENCOUNTER 2023-05-02 05:58 | Observation (INO) ==
[~2023-05-02 05:58] MED LIST changes: -Acetaminophen TAB* 325 MG PO ONE; -Buffered Lidocaine 0.9% SYRIN* 5 ML/SYR SYRINGE INTRADERM ONE; +Chlorhexidine MOUTHWASH 0.12% 15 ML UDC ONE; -Famotidine IV* 10 MG/ML 2 ML (20 mg) IV ONE; -Gabapentin CAP(*) 300 MG PO ONE; -Tranexamic Acid 1,000 MG in NS 0.9% 50 ML* (outpatient use) IV SCH; -celeCOXIB CAP* 200 MG PO ONE
[2023-05-02] MEDS ORDERED: Buffered Lidocaine 1% SYRIN 1 ml INTRADERM ONE (06:00)
[2023-05-02] MEDS ORDERED: Lactated Ringers 1000 ml BAG 1,000 ML IV SCH ×2 (06:00→10:00)
[2023-05-02] MEDS ORDERED: Famotidine IV 10 MG/ML 2 ml VIAL (20 mg) IV ONE (06:00)
[2023-05-02] MEDS ORDERED: Famotidine IV 10 MG/ML 2 ml VIAL (20 mg) ONE (06:38)
[2023-05-02] MEDS ORDERED: ceFAZolin 2 GM in NS PREMIX 2 GM/100 ML BAG IVPB ONE (06:38)
[2023-05-02] MEDS ORDERED: Lidocaine 2% PF 5 ML VIAL ONE (06:50)
[2023-05-02] MEDS ORDERED: fentaNYL 250 mcg/5 ml 50 MCG/ML 5 ml VIAL (250 MCG) ONE (06:50)
[2023-05-02] MEDS ORDERED: Propofol 10 MG/ML 20 ML BTL ONE (06:50)
[2023-05-02] MEDS ORDERED: Midazolam 2 mg/2 ml VIAL 1 mg/ml 2 ml VIAL (2 mg) ONE (06:50)
[2023-05-02] MEDS ORDERED: Rocuronium 50 mg VIAL 10 mg/ml 5 ml VIAL (50 mg) ONE ×2 (06:50→08:26)
[2023-05-02] MEDS ORDERED: Thrombin 5,000 UNITS 1 APPLIC KIT - topical use - TOPICAL ONE (06:59)
[2023-05-02] MEDS ORDERED: ceFAZolin VIAL VIAL ONE (06:59)
[2023-05-02] MEDS ORDERED: Gelfoam Sponge SIZE 100 SPONGE ONE (06:59)
[2023-05-02] MEDS ORDERED: Lidocaine 1% w EPI 1:100,000 MDV 20 ML VIAL ONE (06:59)
[2023-05-02] MEDS ORDERED: Dexamethasone IV 4 MG/ML VIAL 1 ml VIAL ONE (07:44)
[2023-05-02] MEDS ORDERED: Ondansetron 4 mg VIAL 2 MG/ML 2 ml VIAL IV PRN ×2 (08:03→09:28)
[2023-05-02] MEDS ORDERED: Naloxone 0.4 mg VIAL 0.4 mg/ml 1 ml VIAL IV PRN (08:03)
[2023-05-02] MEDS ORDERED: fentaNYL 100 mcg/2 ml 50 MCG/ML VIAL IV PRN (08:03)
[2023-05-02] MEDS ORDERED: HYDROcodone/ACETAMIN 5/325 mg TAB PO PRN ×2 (09:28)
[2023-05-02] MEDS ORDERED: Calcium Carb (TUMS) 500 mg CHEW TAB PO PRN (09:28)
[2023-05-02] MEDS ORDERED: Senna TAB 8.6 mg TAB PO PRN (09:28)
[2023-05-02] MEDS ORDERED: Albuterol HFA INHALER 8 gm MDI INH PRN (09:32)
[2023-05-02] MEDS: Nicotine PATCH 21 MG/24 HR PATCH TRANSDERM SCH (16:05)
[2023-05-03] MEDS: Nicotine PATCH 21 MG/24 HR PATCH TRANSDERM SCH (08:56)
[2023-05-03 13:56] VITALS: BP 137/75
== END 2023-05-03 14:30 | disposition home or self-care (01) ==
LOC: OR 05:58 → SSU 05:58
PROVIDERS: ADMIT Neurological Surgery; ATTEND Neurological Surgery